=== PATIENT | male | born 1955 | race Asian ===

== ENCOUNTER 2017-08-04 09:50 | Inpatient (IN) | payer OTHER ==
[~2017-08-04] VITALS: Ht 167.6 cm; Wt 63.7 kg
[2017-08-04 10:00] VITALS: BP 156/90; PULSE 75; RESP 16
[2017-08-04] MEDS ORDERED: ASPI-664 PO (10:14)
[2017-08-04] MEDS ORDERED: METF500T4 PO (10:15)
[2017-08-04] MEDS ORDERED: LISI20TA11 PO (10:15)
[2017-08-04 10:27] VITALS: Ht 167.6 cm; Wt 63.7 kg
[2017-08-04] MEDS ORDERED: GLUCAGON 1 MG INJ IM PRN (11:00)
[2017-08-04] MEDS ORDERED: GLUCOSE GEL 15 GRAM TUBE BUCCAL PRN (11:00)
[2017-08-04] MEDS ORDERED: DEXTROSE 50% 50 ML SYRINGE IV PRN ×2 (11:00)
[2017-08-04] MEDS ORDERED: GLUCOSE GEL 15 GRAM TUBE PO PRN ×2 (11:00)
[2017-08-04] MEDS ORDERED: LIDOCAINE 1% (MPF) 5 ML VIAL SC ONE (11:00)
[2017-08-04] MEDS ORDERED: ONDANSETRON 4 MG INJ IV PRN (11:30)
[2017-08-04] MEDS ORDERED: NACL 0.9% 3 ML SYG IV SCH (11:30)
[2017-08-04] MEDS ORDERED: LISINOPRIL 20 MG TAB PO SCH (11:30)
[2017-08-04] MEDS: INSULIN ASPART [NOVOLOG] 3 ML PEN SC SCH ×3 (11:40→20:30)
[2017-08-04 12:51] LABS: BASOPHIL # 0.1 10^3/ul (0.0-0.1); BASOPHILS % 0.8 % (0.0-2.0); EOSINOPHILS # 0.3 10^3/ul (0.0-0.5); EOSINOPHILS % 3.6 % (0.0-7.0); LYMPHOCYTES # 1.6 10^3/ul (0.8-2.9); LYMPHOCYTES % 19.9 % (15.0-51.0); MEAN CORPUSCULAR HEMOGLOBIN 28.7 pg (29.0-33.0); MEAN CORPUSCULAR HGB CONC 33.3 g/dl (32.0-37.0); MEAN CORPUSCULAR VOLUME 86.1 fl (82.0-101.0); MEAN PLATELET VOLUME 9.7 fl (7.4-10.4); MONOCYTE # 0.5 10^3/ul (0.3-0.9); MONOCYTES % 6.3 % (0.0-11.0); NEUTROPHILS % 68.8 % (39.0-77.0); PLATELET COUNT 302 10^3/UL (140-415); RED BLOOD COUNT 4.53 10^6/ul (4.70-6.10); RED CELL DISTRIBUTION WIDTH 11.9 % (11.5-14.5); WHITE BLOOD COUNT 7.8 10^3/ul (4.8-10.8)
--- NOTE | 2017-08-04 13:00 | HP ---
Date/Time of Note Date/Time of Note DATE: 08/04/17 TIME: 12:59 Assessment/Plan VTE Prophylaxis VTE Prophylaxis Intervention: ambulation, SCD's Assessment/Plan Chief Complaint/Hosp Course 1. Newly diagnosed undifferentiated pleomorphic sarcoma. To be started on Adriamycin/ Ifosfamide/ Mesna. PICC line will be inserted for initiation of chemotherapy. Chemotherapy to be managed by oncology. 2. Type 2 diabetes mellitus. The patient will be continued on metformin. Hemoglobin A1c will be obtained to evaluate the blood glucose control over the past few weeks. 3. Essential hypertension. The patient will be resumed on his home antihypertensives. Plan: The patient will be admitted to inpatient medical surgical floor. The patient will be started on a carbohydrate controlled diet. The patient will be started on DVT prophylaxis and gastrointestinal prophylaxis. The patient will remain a full code. Activities will be as tolerated. The rest of the patient's management will be based on the clinical course, inputs from consultants, and the results of diagnostic studies. Based on the patient's clinical presentation, he most probably requires at least 2 midnights' stay for further management and evaluation of his clinical presentation. The case and management of this patient was fully discussed with Dr. Vang Problems: HPI/ROS Admit Date/Time Admit Date/Time Aug 04, 2017 at 09:50 Hx of Present Illness Reason for admission: For chemotherapy. Consultants 1. Mara Joe MD, Oncology. This is a 62-year-old [place] male with past medical history of essential hypertension, diabetes mellitus, and recently diagnosed undifferentiated pleomorphic sarcoma who is being admitted here for initiation of chemotherapy as per the oncologist. The patient verbalized that he noticed right lower abdominal swelling since the November 2016. He underwent imaging studies followed by biopsy that confirmed the diagnosis of undifferentiated pleomorphic sarcoma. The patient follows up with Dr. Joe as outpatient. The patient is being admitted here for initiation of chemotherapy. 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 Alcohol Use: none Smoking Status: Former smoker Drug Use: none Exam/Review of Systems Vital Signs Vitals Vital Signs Date Time Temp Pulse Resp B/P Pulse Ox O2 Delivery O2 Flow Rate FiO2 08/04/17 10:00 97.5 75 16 156/90 98 Room Air Exam Exam General: Adequately build 62 year-old male lying in bed in no apparent distress. HEENT: Normocephalic, atraumatic. Eyes: Anicteric sclerae, conjunctivae clear. ENT: Nasal septum midline, oral mucosa moist. Neck supple, no JVD noticed. Respiratory: Bilaterally clear breath sounds. No use of accessory muscles of respiration. No adventitious breath sounds. Cardiovascular: S1, S2 heard. No murmurs or gallops. Abdomen: Nontender, and nondistended. Bowel sounds positive in all 4 quadrants. Right sided solid mass with no tenderness upon palpation. Genitourinary: Deferred. Extremities: No cyanosis, no clubbing, no edema. Peripheral pulses palpable. Neurologic: Cranial nerves II through XII grossly intact. The patient is awake, alert, and oriented. Skin: Normal skin turgor. No skin rashes. Labs Result Diagram: 08/04/17 1232 Medications Medications Current Medications Aspirin (Halfprin) 81 mg DAILY PO ; Start 08/05/17 at 09:00 Lisinopril (Zestril) 20 mg DAILY PO ; Start 08/05/17 at 09:00 Miscellaneous Information 1 ea NOTE XX ; Start 08/04/17 at 11:00 Glucose (Glutose) 15 gm Q15M PRN PO DECREASED GLUCOSE; Start 08/04/17 at 11:00 Glucose (Glutose) 22.5 gm Q15M PRN PO DECREASED GLUCOSE; Start 08/04/17 at 11:00 Dextrose (D50w Syringe) 25 ml Q15M PRN IV DECREASED GLUCOSE; Start 08/04/17 at 11:00 Dextrose (D50w Syringe) 50 ml Q15M PRN IV DECREASED GLUCOSE; Start 08/04/17 at 11:00 Glucagon (Glucagen) 1 mg Q15M PRN IM DECREASED GLUCOSE; Start 08/04/17 at 11:00 Glucose (Glutose) 15 gm Q15M PRN BUCCAL DECREASED GLUCOSE; Start 08/04/17 at 11: 00 Ondansetron HCl (Zofran Inj) 4 mg Q6H PRN IV NAUSEA AND/OR VOMITING; Start 08/04 at 11:30 Acetaminophen (Tylenol Tab) 650 mg Q6H PRN PO PAIN LEVEL 1-3 OR FEVER; Start at 11:30 Famotidine (Pepcid) 20 mg Q12 PO ; Start 08/04/17 at 21:00 Diagnostic Test (Pha) (Accu-Chek) 1 ea 02 XX ; Start 08/05/17 at 02:00 Diagnostic Test (Pha) (Accu-Chek) 1 ea 02 XX ; Start 08/05/17 at 02:00 EMA WHALEY NP Aug 04, 2017 13:00
[2017-08-04 13:02] LABS: INR 0.87; PROTIME 11.8 Sec (12.2-14.2); PT RATIO 0.9
[2017-08-04 13:03] LABS: PARTIAL THROMBOPLASTIN TIME 32.5 Sec (25.0-35.0)
[2017-08-04 13:11] LABS: ALBUMIN 4.2 g/dl (3.3-4.9); ALBUMIN/GLOBULIN RATIO 1.31; BILIRUBIN,INDIRECT 0.3 mg/dl (0-1.1); BILIRUBIN,TOTAL 0.3 mg/dl (0.2-1.3); CALCIUM 9.6 mg/dl (8.4-10.2); CREATININE 0.68 mg/dl (0.61-1.24); MAGNESIUM 2.1 mg/dl (1.7-2.5); PHOSPHORUS 3.7 mg/dl (2.5-4.9); POTASSIUM 4.4 mmol/L (3.5-5.1); TOTAL PROTEIN 7.4 g/dl (6.1-8.1)
[2017-08-04 14:46] VITALS: BP 154/78; RESP 20
--- NOTE | 2017-08-04 17:17 | RADRPT ---
PROCEDURE: XR Chest. CLINICAL INDICATION: Check Line Placement TECHNIQUE: Single frontal view of the chest was obtained. COMPARISON: None. FINDINGS: There is a left-sided PICC line with its tip in the distal SVC. There is mild to moderate cardiomegaly and mild pulmonary vascular congestion. No definite focal infiltrates are identified. There is no significant pleural effusion or pneumothorax. IMPRESSION: Left-sided PICC line. Mild to moderate cardiomegaly with mild pulmonary vascular congestion. No definite focal infiltrates or effusions. RPTAT: EE Physician César Date Time Electronically viewed and signed by Physician César on 08/04/2017 17:17 /
--- NOTE | 2017-08-04 17:17 | RADRPT ---
PROCEDURE: US guidance for PICC line CLINICAL INDICATION: PICC line placement TECHNIQUE: Multiple real-time images were acquired of the patient's arm utilizing a high resolutio n transducer. This was performed by the PICC line nurse for venous access. COMPARISON: None FINDINGS: See impression. IMPRESSION: Ultrasound guidance for PICC line placement. There is a patent and compressible left upper extremity vein. RPTAT: AA Physician César Date Time Electronically viewed and signed by Kody Starr Physician on 08/04/2017 17:16 /
[2017-08-04] MEDS: metFORMIN 500 MG TAB PO SCH (17:52)
[2017-08-04 19:10] VITALS: BP 146/96; RESP 18
[2017-08-04] MEDS: FAMOTIDINE 20 MG TAB PO SCH (20:28)
--- NOTE | 2017-08-04 23:02 | CONS ---
Date/Time of Note Date/Time of Note DATE: 08/04/17 TIME: 22:54 Assessment/Plan Assessment/Plan Chief Complaint/Hosp Course #poorly differentiated sarcoma -pt to start neoadjuvant chemotherapy with Adriamycin/ Ifosfamide/ Mesna -day 1 of 3 to start tomorrow -will need to check daily UA to evaluate for hemorrhagic cystitis -pt will need a total of 3 cycles 3 weeks apart -PICC line has been inserted -will need ECHO prior to starting adriamycin #Diabetes -continue DM management per primary team #HTN -BP currently under good control -continue current BP meds per primary Problems: (1) Pleomorphic cell sarcoma Status: Acute (2) Diabetes Status: Chronic Qualifiers: (3) Hypertension Status: Chronic Consultation Date/Type/Reason Admit Date/Time Aug 04, 2017 at 09:50 Date of Consultation: Aug 04, 2017 Type of Consultation: Oncology Reason for Consultation poorly differentiated sarcoma Referring Provider: EMA WHALEY NP Hx of Present Illness 62-year-old male who states that he noticed a right lower abdominal mass starting in November 2016. He denies any pain and states that it has not been growing since that time or changing. Patient had an ultrasound performed 2016, which stated that there was a mass corresponding to the area palpable of concern measuring greater than 6 cm.. He underwent a CT abdomen and pelvis with and without contrast on 12/23/2016, which demonstrated a large heterogeneously enhancing soft tissue mass in the right lower quadrant extending towards the right inguinal canal measuring up to 6.9 x 6.3 x 5.9 cm and had a suspicion for malignancy, suggest further evaluation with tissue sampling. Patient underwent a biopsy which revealed an "undifferentiated pleomorphic sarcoma". Pt was evaluated by a sarcoma surgeon at [facility] who stated he could resect the tumor if we were able to decrease the tumor size with neoadjuvant chemotherapy. He is now being admitted for Adriamycin/ Ifosfamide/Mesna. Pt is ready to start chemotherapy. States his abdominal pain is controlled. Eyes: no complaints ENT: no complaints Respiratory: no complaints Cardiovascular: no complaints Gastrointestinal: no complaints Genitourinary: no complaints Musculoskeletal: no complaints Skin: no complaints Neurologic: no complaints Lymphatic: no complaints Psychological: no complaints Immunologic: no complaints Past Medical History Medical History: diabetes, hypertension Past Surgical History Past Surgical Hx: no surgical history Social History Alcohol Use: none Smoking Status: Former smoker Drug Use: none Exam/Review of Systems Vital Signs Vitals Vital Signs Date Time Temp Pulse Resp B/P Pulse Ox O2 Delivery O2 Flow Rate FiO2 08/04/17 19:10 98.7 72 18 146/96 97 08/04/17 10:00 Room Air Exam Constitutional: alert, oriented Psych: no complaints Head: normocephalic Eyes: nl conjunctiva ENMT: nl external ears & nose Neck: non-tender, supple Respiratory: clear to auscultation Cardiovascular: regular rate and rhythm Gastrointestinal: other (palpable mass in RLQ) Musculoskeletal: nl extremities to inspection Results Result Diagram: 08/04/17 1232 08/04/17 1232 Results 24 hrs Laboratory Tests Test 08/04/17 12:32 08/04/17 13:05 08/04/17 17:51 08/04/17 20:30 White Blood Count 7.8 Red Blood Count 4.53 L Hemoglobin 13.0 L Hematocrit 39.0 L Mean Corpuscular Volume 86.1 Mean Corpuscular Hemoglobin 28.7 L Mean Corpuscular Hemoglobin Concent 33.3 Red Cell Distribution Width 11.9 Platelet Count 302 Mean Platelet Volume 9.7 Neutrophils % 68.8 Lymphocytes % 19.9 Monocytes % 6.3 Eosinophils % 3.6 Basophils % 0.8 Nucleated Red Blood Cells % 0.0 Neutrophils # (Manual) 5.4 Lymphocytes # 1.6 Monocytes # 0.5 Eosinophils # 0.3 Basophils # 0.1 Nucleated Red Blood Cells # 0.0 Prothrombin Time 11.8 L Prothrombin Time Ratio 0.9 INR International Normalized Ratio 0.87 Activated Partial Thromboplast Time 32.5 Sodium Level 140 Potassium Level 4.4 Chloride Level 104 Carbon Dioxide Level 24 Anion Gap 16 Blood Urea Nitrogen 10 Creatinine 0.68 Glucose Level 88 Hemoglobin A1c 6.0 H Calcium Level 9.6 Phosphorus Level 3.7 Magnesium Level 2.1 Total Bilirubin 0.3 Direct Bilirubin 0.00 Indirect Bilirubin 0.3 Aspartate Amino Transf (AST/SGOT) 21 Alanine Aminotransferase (ALT/SGPT) 32 Alkaline Phosphatase 69 Total Protein 7.4 Albumin 4.2 Globulin 3.20 Albumin/Globulin Ratio 1.31 Thyroid Stimulating Hormone (TSH) 0.810 Free Thyroxine 0.63 L Bedside Glucose 89 84 88 Medications Medications Current Medications Aspirin (Halfprin) 81 mg DAILY PO ; Start 08/05/17 at 09:00 Lisinopril (Zestril) 20 mg DAILY PO ; Start 08/05/17 at 09:00 Miscellaneous Information 1 ea NOTE XX ; Start 08/04/17 at 11:00 Glucose (Glutose) 15 gm Q15M PRN PO DECREASED GLUCOSE; Start 08/04/17 at 11:00 Glucose (Glutose) 22.5 gm Q15M PRN PO DECREASED GLUCOSE; Start 08/04/17 at 11:00 Dextrose (D50w Syringe) 25 ml Q15M PRN IV DECREASED GLUCOSE; Start 08/04/17 at 11:00 Dextrose (D50w Syringe) 50 ml Q15M PRN IV DECREASED GLUCOSE; Start 08/04/17 at 11:00 Glucagon (Glucagen) 1 mg Q15M PRN IM DECREASED GLUCOSE; Start 08/04/17 at 11:00 Glucose (Glutose) 15 gm Q15M PRN BUCCAL DECREASED GLUCOSE; Start 08/04/17 at 11: 00 Ondansetron HCl (Zofran Inj) 4 mg Q6H PRN IV NAUSEA AND/OR VOMITING; Start 08/04 at 11:30 Acetaminophen (Tylenol Tab) 650 mg Q6H PRN PO PAIN LEVEL 1-3 OR FEVER; Start at 11:30 Famotidine (Pepcid) 20 mg Q12 PO Last administered on 08/04/17t 20:28; Admin Dose 20 MG; Start 08/04/17 at 21:00 Diagnostic Test (Pha) (Accu-Chek) 1 ea 02 XX ; Start 08/05/17 at 02:00 Diagnostic Test (Pha) (Accu-Chek) 1 ea 02 XX ; Start 08/05/17 at 02:00 IV Flush (NS 10 ml) 10 ml PRN PRN IV IV PROTOCOL; Start 08/04/17 at 17:30 DOMINIQUE LAMBERT M.D. Aug 04, 2017 23:02
[2017-08-05] MEDS: ACCU-CHEK XX SCH ×2 (02:00)
[2017-08-05 02:10] VITALS: BP 124/82; RESP 18
[2017-08-05 05:08] LABS: BASOPHIL # 0.1 10^3/ul (0.0-0.1); BASOPHILS % 0.5 % (0.0-2.0); EOSINOPHILS # 0.3 10^3/ul (0.0-0.5); EOSINOPHILS % 2.9 % (0.0-7.0); HEMATOCRIT 38.2 % (42.0-52.0); HEMOGLOBIN 12.5 g/dl (14.0-18.0); LYMPHOCYTES # 1.3 10^3/ul (0.8-2.9); LYMPHOCYTES % 13.1 % (15.0-51.0); MEAN CORPUSCULAR HEMOGLOBIN 28.3 pg (29.0-33.0); MEAN CORPUSCULAR HGB CONC 32.7 g/dl (32.0-37.0); MEAN CORPUSCULAR VOLUME 86.4 fl (82.0-101.0); MEAN PLATELET VOLUME 9.5 fl (7.4-10.4); MONOCYTE # 0.7 10^3/ul (0.3-0.9); MONOCYTES % 6.8 % (0.0-11.0); NEUTROPHILS % 76.3 % (39.0-77.0); PLATELET COUNT 302 10^3/UL (140-415); RED BLOOD COUNT 4.42 10^6/ul (4.70-6.10); RED CELL DISTRIBUTION WIDTH 11.9 % (11.5-14.5); WHITE BLOOD COUNT 9.7 10^3/ul (4.8-10.8)
[2017-08-05 05:30] LABS: ALBUMIN 3.7 g/dl (3.3-4.9); ALBUMIN/GLOBULIN RATIO 1.19; BILIRUBIN,INDIRECT 0.8 mg/dl (0-1.1); BILIRUBIN,TOTAL 0.8 mg/dl (0.2-1.3); CALCIUM 9.2 mg/dl (8.4-10.2); CREATININE 0.79 mg/dl (0.61-1.24); POTASSIUM 4.2 mmol/L (3.5-5.1); TOTAL PROTEIN 6.8 g/dl (6.1-8.1)
[2017-08-05 06:02] LABS: CHOL/HDL RATIO 5.2 RATIO; MAGNESIUM 2.2 mg/dl (1.7-2.5)
[2017-08-05] MEDS: metFORMIN 500 MG TAB PO SCH ×2 (07:50→18:06)
[2017-08-05 07:52] LABS: ADD UMIC NO; UR ASCORBIC ACID NEGATIVE (NEGATIVE); UR BILIRUBIN (Dip) NEGATIVE (NEGATIVE); UR BLOOD (Dip) NEGATIVE (NEGATIVE); UR CLARITY CLEAR (CLEAR); UR COLOR YELLOW (YELLOW); UR GLUCOSE (Dip) NEGATIVE (NEGATIVE); UR KETONES (Dip) NEGATIVE (NEGATIVE); UR LEUKOCYTE ESTERASE (Dip) NEGATIVE Leu/ul (NEGATIVE); UR NITRITE (Dip) NEGATIVE (NEGATIVE); UR SPECIFIC GRAVITY (Dip) 1.014 (1.003-1.030); UR TOTAL PROTEIN (Dip) NEGATIVE (NEGATIVE); UR UROBILINOGEN (Dip) NEGATIVE (NEGATIVE)
[2017-08-05 08:09] VITALS: BP 132/71; RESP 18
[2017-08-05] MEDS: FAMOTIDINE 20 MG TAB PO SCH ×2 (08:40→20:55)
[2017-08-05] MEDS: LISINOPRIL 20 MG TAB PO SCH (08:50)
[2017-08-05] MEDS: ASPIRIN (EC) 81 MG TAB PO SCH (08:50)
[2017-08-05] MEDS: INSULIN ASPART [NOVOLOG] 3 ML PEN SC SCH ×4 (08:50→20:58)
--- NOTE | 2017-08-05 10:05 | PN ---
Date/Time of Note Date/Time of Note DATE: 08/05/17 TIME: 09:59 Assessment/Plan VTE Prophylaxis VTE Prophylaxis Intervention: ambulation, SCD's Lines/Catheters IV Catheter Type (from Nrs): PICC Line Central line still needed: Yes Urinary Cath still in place: No Assessment/Plan Chief Complaint/Hosp Course 1. Newly diagnosed undifferentiated pleomorphic sarcoma. To be started on Adriamycin/ Ifosfamide/ Mesna. S/P PICC line insertion. 2. Type 2 diabetes mellitus. The patient will be continued on metformin. Hemoglobin A1c 6.0. 3. Essential hypertension. The patient will be continued on his home antihypertensives. 4. Fluids, electrolytes, and nutrition. Carbohydrate controlled diet. 5. DVT prophylaxis. Ambulation. 6. Plan. Continue current management. Chemotherapy as per oncology. Case discussed with Dr. Vang. Problems: Subjective 24 Hr Interval Summary Free Text/Dictation Denies any complaints. Exam/Review of Systems Vital Signs Vitals Vital Signs Date Time Temp Pulse Resp B/P Pulse Ox O2 Delivery O2 Flow Rate FiO2 08/05/17 08:09 97.6 72 18 132/71 99 08/04/17 10:00 Room Air Intake and Output 08/04/17 08/04/17 08/05/17 14:59 22:59 06:59 Intake Total 520 ml 720 ml Balance 520 ml 720 ml Exam General: Adequately build 62 year-old male lying in bed in no apparent distress. HEENT: Normocephalic, atraumatic. Eyes: Anicteric sclerae, conjunctivae clear. ENT: Nasal septum midline, oral mucosa moist. Neck supple, no JVD noticed. Respiratory: Bilaterally clear breath sounds. No use of accessory muscles of respiration. No adventitious breath sounds. Cardiovascular: S1, S2 heard. No murmurs or gallops. Abdomen: Nontender, and nondistended. Bowel sounds positive in all 4 quadrants. Right sided solid mass with no tenderness upon palpation. Genitourinary: Deferred. Extremities: No cyanosis, no clubbing, no edema. Peripheral pulses palpable. Neurologic: Cranial nerves II through XII grossly intact. The patient is awake, alert, and oriented. Skin: Normal skin turgor. No skin rashes. Results Result Diagram: 08/05/17 0451 08/05/17 0451 Results 24 hrs Laboratory Tests Test 08/04/17 12:32 08/04/17 13:05 08/04/17 17:51 08/04/17 20:30 White Blood Count 7.8 Red Blood Count 4.53 L Hemoglobin 13.0 L Hematocrit 39.0 L Mean Corpuscular Volume 86.1 Mean Corpuscular Hemoglobin 28.7 L Mean Corpuscular Hemoglobin Concent 33.3 Red Cell Distribution Width 11.9 Platelet Count 302 Mean Platelet Volume 9.7 Neutrophils % 68.8 Lymphocytes % 19.9 Monocytes % 6.3 Eosinophils % 3.6 Basophils % 0.8 Nucleated Red Blood Cells % 0.0 Neutrophils # (Manual) 5.4 Lymphocytes # 1.6 Monocytes # 0.5 Eosinophils # 0.3 Basophils # 0.1 Nucleated Red Blood Cells # 0.0 Prothrombin Time 11.8 L Prothrombin Time Ratio 0.9 INR International Normalized Ratio 0.87 Activated Partial Thromboplast Time 32.5 Sodium Level 140 Potassium Level 4.4 Chloride Level 104 Carbon Dioxide Level 24 Anion Gap 16 Blood Urea Nitrogen 10 Creatinine 0.68 Glucose Level 88 Hemoglobin A1c 6.0 H Calcium Level 9.6 Phosphorus Level 3.7 Magnesium Level 2.1 Total Bilirubin 0.3 Direct Bilirubin 0.00 Indirect Bilirubin 0.3 Aspartate Amino Transf (AST/SGOT) 21 Alanine Aminotransferase (ALT/SGPT) 32 Alkaline Phosphatase 69 Total Protein 7.4 Albumin 4.2 Globulin 3.20 Albumin/Globulin Ratio 1.31 Thyroid Stimulating Hormone (TSH) 0.810 Free Thyroxine 0.63 L Bedside Glucose 89 84 88 Test 08/05/17 04:51 08/05/17 06:00 08/05/17 08:36 White Blood Count 9.7 # Red Blood Count 4.42 L Hemoglobin 12.5 L Hematocrit 38.2 L Mean Corpuscular Volume 86.4 Mean Corpuscular Hemoglobin 28.3 L Mean Corpuscular Hemoglobin Concent 32.7 Red Cell Distribution Width 11.9 Platelet Count 302 Mean Platelet Volume 9.5 Neutrophils % 76.3 Lymphocytes % 13.1 L Monocytes % 6.8 Eosinophils % 2.9 Basophils % 0.5 Nucleated Red Blood Cells % 0.0 Neutrophils # (Manual) 7.4 Lymphocytes # 1.3 Monocytes # 0.7 Eosinophils # 0.3 Basophils # 0.1 Nucleated Red Blood Cells # 0.0 Sodium Level 139 Potassium Level 4.2 Chloride Level 103 Carbon Dioxide Level 30 Anion Gap 10 # Blood Urea Nitrogen 16 Creatinine 0.79 Glucose Level 92 Calcium Level 9.2 Phosphorus Level 4.0 Magnesium Level 2.2 Total Bilirubin 0.8 Direct Bilirubin 0.00 Indirect Bilirubin 0.8 Aspartate Amino Transf (AST/SGOT) 20 Alanine Aminotransferase (ALT/SGPT) 28 Alkaline Phosphatase 58 Total Protein 6.8 Albumin 3.7 Globulin 3.10 Albumin/Globulin Ratio 1.19 Triglycerides Level 184 H Cholesterol Level 143 LDL Cholesterol, Calculated 79 HDL Cholesterol 27 L Cholesterol/HDL Ratio 5.2 Urine Color YELLOW Urine Clarity CLEAR Urine pH 6.0 Urine Specific [place] 1.014 Urine Ketones NEGATIVE Urine Nitrite NEGATIVE Urine Bilirubin NEGATIVE Urine Urobilinogen NEGATIVE Urine Leukocyte Esterase NEGATIVE Urine Hemoglobin NEGATIVE Urine Glucose NEGATIVE Urine Total Protein NEGATIVE Bedside Glucose 153 Medications Medications Current Medications Aspirin (Halfprin) 81 mg DAILY PO ; Start 08/05/17 at 09:00 Lisinopril (Zestril) 20 mg DAILY PO ; Start 08/05/17 at 09:00 Miscellaneous Information 1 ea NOTE XX ; Start 08/04/17 at 11:00 Glucose (Glutose) 15 gm Q15M PRN PO DECREASED GLUCOSE; Start 08/04/17 at 11:00 Glucose (Glutose) 22.5 gm Q15M PRN PO DECREASED GLUCOSE; Start 08/04/17 at 11:00 Dextrose (D50w Syringe) 25 ml Q15M PRN IV DECREASED GLUCOSE; Start 08/04/17 at 11:00 Dextrose (D50w Syringe) 50 ml Q15M PRN IV DECREASED GLUCOSE; Start 08/04/17 at 11:00 Glucagon (Glucagen) 1 mg Q15M PRN IM DECREASED GLUCOSE; Start 08/04/17 at 11:00 Glucose (Glutose) 15 gm Q15M PRN BUCCAL DECREASED GLUCOSE; Start 08/04/17 at 11: 00 Ondansetron HCl (Zofran Inj) 4 mg Q6H PRN IV NAUSEA AND/OR VOMITING; Start 08/04 at 11:30 Acetaminophen (Tylenol Tab) 650 mg Q6H PRN PO PAIN LEVEL 1-3 OR FEVER; Start at 11:30 Famotidine (Pepcid) 20 mg Q12 PO Last administered on 08/05/17t 08:40; Admin Dose 20 MG; Start 08/04/17 at 21:00 Diagnostic Test (Pha) (Accu-Chek) 1 ea 02 XX ; Start 08/05/17 at 02:00 Diagnostic Test (Pha) (Accu-Chek) 1 ea 02 XX ; Start 08/05/17 at 02:00 IV Flush (NS 10 ml) 10 ml PRN PRN IV IV PROTOCOL; Start 08/04/17 at 17:30 EMA WHALEY NP Aug 05, 2017 10:05
[2017-08-05 10:37] LABS: IRON 70 ug/dl (35-150)
[2017-08-05 10:46] LABS: TOTAL IRON BINDING CAPACITY 273 ug/dl (241-421)
[2017-08-05] MEDS: SOD CHLORIDE 0.9% 1,000 ML IV SCH (12:38)
[2017-08-05] MEDS: ACETAMINOPHEN 325 MG TAB PO PRN (12:43)
[2017-08-05 15:16] VITALS: BP 114/73; RESP 18
--- NOTE | 2017-08-05 15:27 | RADRPT ---
Echocardiogram Report Patient Name: MAYRA ESTRADA Gender: Male Date: 1955 Study Date: 05-Aug-2017 Maintenance Team Leader: Jose Gomes. [facility] Location: [facility] Ref. Physician: DOMINIQUE LAMBERT Quality: Good Procedures: Transthoracic echocardiogram with complete 2D, M-Mode, and doppler examination. Indications: will have chemo. 2D/M Mode Doppler Measurement Value Normal Ranges Measurement Value Normal Ranges LVIDd 2D 4.9 3.5 - 5.6 cm DEVAN Vmax 2.5 cm2 LVIDs 2D 1.9 2.1 - 4.1 cm DEVAN VTI 2.5 cm2 LVPWd 2D 1.2 0.6 - 1.1 cm AV Peak Danilo 1.3 m/sec IVSd 2D 1.1 0.6 - 1.1 cm AV Peak PG 6.8 mmHg AoR Diam 2D 2.8 2.0 - 3.7 cm LVOT Peak Danilo 0.9 m/sec EDV 2D 114.4 cm3 LVOT Peak PG 3.5 mmHg ESV 2D 7.0 cm3 MV E Peak Danilo 0.6 m/sec LA Dimen 2D 2.8 2.3 - 4.0 cm MV A Peak Danilo 0.6 m/sec LVOT Diam 2.1 cm MV E/A 1.0 MV Decel Time 239 msec MV Decel [place] 3 MV E/A 1.0 TR Peak Danilo 1.9 m/sec TR Peak PG 14.0 mmHg RVSP 17.0 mmHg Findings Left Ventricle: Normal left ventricular systolic function. Normal left ventricular cavity size. Mild concentric left ventricular hypertrophy. Ejection fraction is visually estimated at 6065 %. Tissue Doppler/Mitral Doppler indices are consistent with impaired relaxation (Stage I diastolic dysfunction). Right Ventricle: Normal right ventricular size. Normal right ventricular systolic function. Left Atrium: The left atrium is normal in size. Right Atrium: The right atrium is normal in size. Mitral Valve: Normal appearance and function of the mitral valve with trace physiologic regurgitation. Aortic Valve: Normal appearance of the aortic valve. No significant aortic stenosis or insufficiency. Tricuspid Valve: Normal appearance of the tricuspid valve. Estimated peak PA systolic pressure 17 mmHg. There is trace tricuspid regurgitation. Pulmonic Valve: Normal pulmonic valve appearance. Pericardium: Normal pericardium with no significant pericardial effusion. Aorta: Normal aortic root. IVC: Normal size and normal respiratory collapse consistent with normal right atrial pressure. Conclusions 1.Normal left ventricular systolic function. Normal left ventricular cavity size. Mild concentric left ventricular hypertrophy. Ejection fraction is visually estimated at 60-65 %. Tissue Doppler/Mitral Doppler indices are consistent with impaired relaxation (Stage I diastolic dysfunction). 2.Normal appearance and function of the mitral valve with trace physiologic regurgitation. 3.Normal appearance of the tricuspid valve. Estimated peak PA systolic pressure 17 mmHg. There is trace tricuspid regurgitation. Electronically Signed By: Kwasi Cotto 05-Aug-2017 15:27:00 -0700 Patient Name: MAYRA ESTRADA Study Date: 05-Aug-2017 [id number]
[2017-08-05 19:25] VITALS: BP 118/73; RESP 18
[2017-08-05] MEDS ORDERED: METHYLPREDNISOLONE 125 MG INJ IV PRN (20:00)
[2017-08-05] MEDS ORDERED: DIPHENHYDRAMINE 50 MG INJ IV PRN (20:00)
--- NOTE | 2017-08-05 21:30 | CONS ---
Date/Time of Note Date/Time of Note DATE: 08/05/17 TIME: 21:26 Assessment/Plan Assessment/Plan Chief Complaint/Hosp Course #poorly differentiated sarcoma -pt to start neoadjuvant chemotherapy with Adriamycin/ Ifosfamide/ Mesna. plan for 3 cycles total then evaluate for surgical resection -day 1 of 3 to start today -will need to check daily UA to evaluate for hemorrhagic cystitis. baseline UA done -pt will need a total of 3 cycles 3 weeks apart -PICC line has been inserted -ECHO has normal EF #Diabetes -continue DM management per primary team -pt on metformin #HTN -BP currently under good control -continue current BP meds per primary Problems: Consultation Date/Type/Reason Admit Date/Time Aug 04, 2017 at 09:50 Initial Consult Date 08/04/17 Type of Consultation: Oncology Reason for Consultation sarcoma, admit for chemotherapy Referring Provider: EMA WHALEY NP 24 HR Interval Summary Free Text/Dictation pt to start chemotherapy today. echocardiogram done Exam/Review of Systems Vital Signs Vitals Vital Signs Date Time Temp Pulse Resp B/P Pulse Ox O2 Delivery O2 Flow Rate FiO2 08/05/17 19:25 98.6 89 18 118/73 97 08/04/17 10:00 Room Air Intake and Output 08/04/17 08/04/17 08/05/17 14:59 22:59 06:59 Intake Total 520 ml 720 ml Balance 520 ml 720 ml Exam Constitutional: alert, oriented Psych: no complaints Head: normocephalic Eyes: nl conjunctiva ENMT: nl external ears & nose Neck: non-tender, supple Respiratory: clear to auscultation, normal air movement Cardiovascular: nl pulses, regular rate and rhythm Gastrointestinal: soft Musculoskeletal: nl extremities to inspection Lymph: nl lymph nodes Results Result Diagram: 08/05/17 0451 08/05/17 0451 Results 24 hrs Laboratory Tests Test 08/05/17 04:51 08/05/17 06:00 08/05/17 08:36 08/05/17 12:39 White Blood Count 9.7 # Red Blood Count 4.42 L Hemoglobin 12.5 L Hematocrit 38.2 L Mean Corpuscular Volume 86.4 Mean Corpuscular Hemoglobin 28.3 L Mean Corpuscular Hemoglobin Concent 32.7 Red Cell Distribution Width 11.9 Platelet Count 302 Mean Platelet Volume 9.5 Neutrophils % 76.3 Lymphocytes % 13.1 L Monocytes % 6.8 Eosinophils % 2.9 Basophils % 0.5 Nucleated Red Blood Cells % 0.0 Neutrophils # (Manual) 7.4 Lymphocytes # 1.3 Monocytes # 0.7 Eosinophils # 0.3 Basophils # 0.1 Nucleated Red Blood Cells # 0.0 Sodium Level 139 Potassium Level 4.2 Chloride Level 103 Carbon Dioxide Level 30 Anion Gap 10 # Blood Urea Nitrogen 16 Creatinine 0.79 Glucose Level 92 Calcium Level 9.2 Phosphorus Level 4.0 Magnesium Level 2.2 Total Bilirubin 0.8 Direct Bilirubin 0.00 Indirect Bilirubin 0.8 Aspartate Amino Transf (AST/SGOT) 20 Alanine Aminotransferase (ALT/SGPT) 28 Alkaline Phosphatase 58 Total Protein 6.8 Albumin 3.7 Globulin 3.10 Albumin/Globulin Ratio 1.19 Triglycerides Level 184 H Cholesterol Level 143 LDL Cholesterol, Calculated 79 HDL Cholesterol 27 L Cholesterol/HDL Ratio 5.2 Urine Color YELLOW Urine Clarity CLEAR Urine pH 6.0 Urine Specific [place] 1.014 Urine Ketones NEGATIVE Urine Nitrite NEGATIVE Urine Bilirubin NEGATIVE Urine Urobilinogen NEGATIVE Urine Leukocyte Esterase NEGATIVE Urine Hemoglobin NEGATIVE Urine Glucose NEGATIVE Urine Total Protein NEGATIVE Iron Level 70 Total Iron Binding Capacity 273 Percent Iron Saturation 26 Ferritin 122.0 Bedside Glucose 153 85 Test 08/05/17 17:59 08/05/17 20:57 Bedside Glucose 104 112 Medications Medications Current Medications Aspirin (Halfprin) 81 mg DAILY PO ; Start 08/05/17 at 09:00 Lisinopril (Zestril) 20 mg DAILY PO ; Start 08/05/17 at 09:00 Miscellaneous Information 1 ea NOTE XX ; Start 08/04/17 at 11:00 Glucose (Glutose) 15 gm Q15M PRN PO DECREASED GLUCOSE; Start 08/04/17 at 11:00 Glucose (Glutose) 22.5 gm Q15M PRN PO DECREASED GLUCOSE; Start 08/04/17 at 11:00 Dextrose (D50w Syringe) 25 ml Q15M PRN IV DECREASED GLUCOSE; Start 08/04/17 at 11:00 Dextrose (D50w Syringe) 50 ml Q15M PRN IV DECREASED GLUCOSE; Start 08/04/17 at 11:00 Glucagon (Glucagen) 1 mg Q15M PRN IM DECREASED GLUCOSE; Start 08/04/17 at 11:00 Glucose (Glutose) 15 gm Q15M PRN BUCCAL DECREASED GLUCOSE; Start 08/04/17 at 11: 00 Ondansetron HCl (Zofran Inj) 4 mg Q6H PRN IV NAUSEA AND/OR VOMITING; Start 08/04 at 11:30 Acetaminophen (Tylenol Tab) 650 mg Q6H PRN PO PAIN LEVEL 1-3 OR FEVER Last administered on 08/05/17 12:43; Admin Dose 650 MG; Start 08/04/17 at 11:30 Famotidine (Pepcid) 20 mg Q12 PO Last administered on 08/05/17 20:55; Admin Dose 20 MG; Start 08/04/17 at 21:00 Diagnostic Test (Pha) (Accu-Chek) 1 ea 02 XX ; Start 08/05/17 at 02:00 Diagnostic Test (Pha) (Accu-Chek) 1 ea 02 XX ; Start 08/05/17 at 02:00 IV Flush 10 ml 10 ml PRN PRN IV IV PROTOCOL; Start 08/04/17 at 17:30 Sodium Chloride (NS) 1,000 ml @ 50 mls/hr Q20H IV Last administered on 12:38; Admin Dose 50 MLS/HR; Start 08/05/17 at 11:00 Diphenhydramine HCl (Benadryl) 25 mg Q4H PRN IV ALLERGIC RXN; Start 08/05/17 at 20:00 Methylprednisolone Sodium Succinate (Solu-Medrol) 60 mg Q4H PRN IV ALLERGIC RXN ; Start 08/05/17 at 20:00 Diphenhydramine HCl 25 mg 25 mg Q24H IV ; Start 08/05/17 at 21:00; Stop 08/07/17 at 21:01 Dexamethasone 10 mg/Ondansetron HCl 16 mg/Sodium Chloride 59 ml @ 120 mls/hr Q24H IV ; Start 08/05/17 at 21:00; Stop 08/07/17 at 21:30 Mesna 1260 mg/ Sodium Chloride 112.6 ml @ 113 mls/hr Q24H IV ; Start 08/05/17 at 22:00; Stop 08/07/17 at 23:00 Ifosfamide 3 gm/ Ifosfamide 1.2 gm/ Sodium Chloride 250 ml @ 125 mls/hr Q24H IV ; Start 08/05/17 at 23:00; Stop 08/08/17 at 00:59 Doxorubicin HCl 40 mg/Sodium Chloride 500 ml @ 21 mls/hr Q24H IV ; Start at 02:00; Stop 08/09/17 at 01:49 Mesna 1260 mg/ Sodium Chloride 112.6 ml @ 113 mls/hr Q24H IV ; Start 08/06/17 at 05:00; Stop 08/08/17 at 06:00 Mesna/Sodium Chloride (Mesna/NS) 112.6 ml @ 113 mls/hr Q24H IV ; Start 08/06/17 at 09:00; Stop 08/08/17 at 10:00 DOMINIQUE LAMBERT M.D. Aug 05, 2017 21:30
[2017-08-05] MEDS: DEXAMETHASONE 10 MG/ML 10 MG, ONDANSETRON INJ 16 MG in SOD CHLORIDE 0.9% 50 ML IV SCH (22:55)
[2017-08-05] MEDS: DIPHENHYDRAMINE 50 MG INJ IV SCH (22:57)
[2017-08-05] MEDS: SOD CHLORIDE 0.9% IV SCH (23:15)
[2017-08-05] MEDS: MESNA IV SCH (23:15)
[2017-08-06] VITALS (19 sets, daily range): BP systolic 108–147; BP diastolic 57–86; PULSE 65–89; RESP 16–20
[2017-08-06] MEDS: IFOSFAMIDE IV SCH (00:17)
[2017-08-06] MEDS: SOD CHLORIDE 0.9% IV SCH ×4 (00:17→10:58)
[2017-08-06] MEDS: ACCU-CHEK XX SCH ×2 (02:00)
[2017-08-06] MEDS: DOXORUBICIN IV SCH (03:40)
[2017-08-06 05:24] LABS: BASOPHILS % 0.3 % (0.0-2.0); EOSINOPHILS % 0.1 % (0.0-7.0); HEMATOCRIT 40.3 % (42.0-52.0); HEMOGLOBIN 12.7 g/dl (14.0-18.0); LYMPHOCYTES # 0.8 10^3/ul (0.8-2.9); MEAN CORPUSCULAR HEMOGLOBIN 27.4 pg (29.0-33.0); MEAN CORPUSCULAR HGB CONC 31.5 g/dl (32.0-37.0); MEAN PLATELET VOLUME 9.8 fl (7.4-10.4); MONOCYTE # 0.1 10^3/ul (0.3-0.9); MONOCYTES % 0.8 % (0.0-11.0); NEUTROPHILS % 90.1 % (39.0-77.0); PLATELET COUNT 294 10^3/UL (140-415); RED BLOOD COUNT 4.63 10^6/ul (4.70-6.10); RED CELL DISTRIBUTION WIDTH 12.3 % (11.5-14.5)
[2017-08-06 05:40] LABS: MAGNESIUM 2.3 mg/dl (1.7-2.5); PHOSPHORUS 3.5 mg/dl (2.5-4.9)
[2017-08-06 05:43] LABS: ALBUMIN/GLOBULIN RATIO 1.21; BILIRUBIN,INDIRECT 0.6 mg/dl (0-1.1); BILIRUBIN,TOTAL 0.6 mg/dl (0.2-1.3); CALCIUM 9.3 mg/dl (8.4-10.2); CREATININE 0.92 mg/dl (0.61-1.24); POTASSIUM 4.8 mmol/L (3.5-5.1); TOTAL PROTEIN 7.3 g/dl (6.1-8.1)
[2017-08-06] MEDS: MESNA IV SCH ×2 (06:51→10:58)
[2017-08-06] MEDS: SOD CHLORIDE 0.9% 1,000 ML IV SCH ×2 (07:00→10:19)
--- NOTE | 2017-08-06 08:57 | PN ---
Date/Time of Note Date/Time of Note DATE: 08/06/17 TIME: 08:56 Assessment/Plan VTE Prophylaxis VTE Prophylaxis Intervention: ambulation Lines/Catheters IV [facility] Type [facility]from [facility] PICC Line Central line still needed: Yes Urinary Cath still in place: No Assessment/Plan Chief Complaint/Hosp Course 1. Newly diagnosed undifferentiated pleomorphic sarcoma. The patient on Adriamycin/ Ifosfamide/ Mesna. S/P PICC line insertion. 2D echo showing preserved left ventricular ejection fraction. 2. Type 2 diabetes mellitus. The patient will be continued on metformin. Hemoglobin A1c 6.0. 3. Essential hypertension. The patient will be continued on his home antihypertensives. 4. Fluids, electrolytes, and nutrition. Carbohydrate controlled diet. 5. DVT prophylaxis. Ambulation. 6. Plan. Continue current management. Chemotherapy as per oncology. Case discussed with Dr. Vang. Problems: Subjective 24 Hr Interval Summary Free Text/Dictation Denies any complaints. Getting chemotherapy. Exam/Review of Systems Vital Signs Vitals Vital Signs Date Time Temp Pulse Resp B/P Pulse Ox O2 Delivery O2 Flow Rate FiO2 08/06/17 08:01 97.8 87 18 130/76 97 08/06/17 06:00 Room Air Intake and Output 08/05/17 08/05/17 08/06/17 14:59 22:59 06:59 Intake Total 955 ml 1546.6 ml Balance 955 ml 1546.6 ml Exam General: Adequately build 62 year-old male lying in bed in no apparent distress. HEENT: Normocephalic, atraumatic. Eyes: Anicteric sclerae, conjunctivae clear. ENT: Nasal septum midline, oral mucosa moist. Neck supple, no JVD noticed. Respiratory: Bilaterally clear breath sounds. No use of accessory muscles of respiration. No adventitious breath sounds. Cardiovascular: S1, S2 heard. No murmurs or gallops. Abdomen: Nontender, and nondistended. Bowel sounds positive in all 4 quadrants. Right sided solid mass with no tenderness upon palpation. Genitourinary: Deferred. Extremities: No cyanosis, no clubbing, no edema. Peripheral pulses palpable. Neurologic: Cranial nerves II through XII grossly intact. The patient is awake, alert, and oriented. Skin: Normal skin turgor. No skin rashes. Results Result Diagram: 08/06/17 0425 08/06/17 0425 Results 24 hrs Laboratory Tests Test 08/05/17 12:39 08/05/17 17:59 08/05/17 20:57 08/06/17 04:25 Bedside Glucose 85 104 112 White Blood Count 10.0 Red Blood Count 4.63 L Hemoglobin 12.7 L Hematocrit 40.3 L Mean Corpuscular Volume 87.0 Mean Corpuscular Hemoglobin 27.4 L Mean Corpuscular Hemoglobin Concent 31.5 L Red Cell Distribution Width 12.3 Platelet Count 294 Mean Platelet Volume 9.8 Neutrophils % 90.1 H Lymphocytes % 8.0 L Monocytes % 0.8 Eosinophils % 0.1 Basophils % 0.3 Nucleated Red Blood Cells % 0.0 Neutrophils # (Manual) 9.0 H Lymphocytes # 0.8 Monocytes # 0.1 L Eosinophils # 0.0 Basophils # 0.0 Nucleated Red Blood Cells # 0.0 Sodium Level 143 Potassium Level 4.8 Chloride Level 104 Carbon Dioxide Level 29 Anion Gap 15 Blood Urea Nitrogen 16 Creatinine 0.92 Glucose Level 146 # Calcium Level 9.3 Phosphorus Level 3.5 Magnesium Level 2.3 Total Bilirubin 0.6 Direct Bilirubin 0.00 Indirect Bilirubin 0.6 Aspartate Amino Transf (AST/SGOT) 20 Alanine Aminotransferase (ALT/SGPT) 26 Alkaline Phosphatase 66 Total Protein 7.3 Albumin 4.0 Globulin 3.30 H Albumin/Globulin Ratio 1.21 Test 08/06/17 08:29 Bedside Glucose 157 Medications Medications Current Medications Aspirin (Halfprin) 81 mg DAILY PO ; Start 08/05/17 at 09:00 Lisinopril (Zestril) 20 mg DAILY PO ; Start 08/05/17 at 09:00 Miscellaneous Information 1 ea NOTE XX ; Start 08/04/17 at 11:00 Glucose (Glutose) 15 gm Q15M PRN PO DECREASED GLUCOSE; Start 08/04/17 at 11:00 Glucose (Glutose) 22.5 gm Q15M PRN PO DECREASED GLUCOSE; Start 08/04/17 at 11:00 Dextrose (D50w Syringe) 25 ml Q15M PRN IV DECREASED GLUCOSE; Start 08/04/17 at 11:00 Dextrose (D50w Syringe) 50 ml Q15M PRN IV DECREASED GLUCOSE; Start 08/04/17 at 11:00 Glucagon (Glucagen) 1 mg Q15M PRN IM DECREASED GLUCOSE; Start 08/04/17 at 11:00 Glucose (Glutose) 15 gm Q15M PRN BUCCAL DECREASED GLUCOSE; Start 08/04/17 at 11: 00 Ondansetron HCl (Zofran Inj) 4 mg Q6H PRN IV NAUSEA AND/OR VOMITING; Start 08/04 at 11:30 Acetaminophen (Tylenol Tab) 650 mg Q6H PRN PO PAIN LEVEL 1-3 OR FEVER Last administered on 08/05/17 12:43; Admin Dose 650 MG; Start 08/04/17 at 11:30 Famotidine (Pepcid) 20 mg Q12 PO Last administered on 08/05/17 20:55; Admin Dose 20 MG; Start 08/04/17 at 21:00 Diagnostic Test (Pha) (Accu-Chek) 1 ea 02 XX ; Start 08/05/17 at 02:00 Diagnostic Test (Pha) (Accu-Chek) 1 ea 02 XX ; Start 08/05/17 at 02:00 IV Flush 10 ml 10 ml PRN PRN IV IV PROTOCOL; Start 08/04/17 at 17:30 Sodium Chloride (NS) 1,000 ml @ 50 mls/hr Q20H IV Last administered on 12:38; Admin Dose 50 MLS/HR; Start 08/05/17 at 11:00 Diphenhydramine HCl (Benadryl) 25 mg Q4H PRN IV ALLERGIC RXN; Start 08/05/17 at 20:00 Methylprednisolone Sodium Succinate (Solu-Medrol) 60 mg Q4H PRN IV ALLERGIC RXN ; Start 08/05/17 at 20:00 Diphenhydramine HCl 25 mg 25 mg Q24H IV Last administered on 08/05/17 22:57; Admin Dose 25 MG; Start 08/05/17 at 21:00; Stop 08/07/17 at 21:01 Dexamethasone 10 mg/Ondansetron HCl 16 mg/Sodium Chloride 59 ml @ 120 mls/hr Q24H IV Last administered on 08/05/17 22:55; Admin Dose 120 MLS/HR; Start at 21:00; Stop 08/07/17 at 21:30 Mesna 1260 mg/ Sodium Chloride 112.6 ml @ 113 mls/hr Q24H IV Last administered on 08/05/17 23:15; Admin Dose 113 MLS/HR; Start 08/05/17 at 22:00; Stop 08/07/17 at 23:00 Ifosfamide 3 gm/ Ifosfamide 1.2 gm/ Sodium Chloride 250 ml @ 125 mls/hr Q24H IV Last administered on 08/06/17 00:17; Admin Dose 125 MLS/HR; Start 08/05/17 at 23:00; Stop 08/08/17 at 00:59 Doxorubicin HCl 40 mg/Sodium Chloride 500 ml @ 21 mls/hr Q24H IV Last administered on 08/06/17 03:40; Admin Dose 21 MLS/HR; Start 08/06/17 at 02:00; Stop 08/09/17 at 01:49 Mesna 1260 mg/ Sodium Chloride 112.6 ml @ 113 mls/hr Q24H IV Last administered on 08/06/17 06:51; Admin Dose 113 MLS/HR; Start 08/06/17 at 05:00; Stop 08/08/17 at 06:00 Mesna/Sodium Chloride (Mesna/NS) 112.6 ml @ 113 mls/hr Q24H IV ; Start 08/06/17 at 09:00; Stop 08/08/17 at 10:00 EMA WHALEY NP Aug 06, 2017 08:57
[2017-08-06] MEDS: metFORMIN 500 MG TAB PO SCH ×2 (09:01→17:44)
[2017-08-06] MEDS: ASPIRIN (EC) 81 MG TAB PO SCH (09:01)
[2017-08-06] MEDS: FAMOTIDINE 20 MG TAB PO SCH ×2 (09:01→20:39)
[2017-08-06] MEDS: LISINOPRIL 20 MG TAB PO SCH (09:02)
[2017-08-06] MEDS: INSULIN ASPART [NOVOLOG] 3 ML PEN SC SCH ×4 (09:02→20:42)
[2017-08-06 09:55] LABS: ADD UMIC YES; UR ASCORBIC ACID NEGATIVE (NEGATIVE); UR BILIRUBIN (Dip) NEGATIVE (NEGATIVE); UR BLOOD (Dip) 1+ mg/dL (NEGATIVE); UR CLARITY CLEAR (CLEAR); UR COLOR STRAW (YELLOW); UR GLUCOSE (Dip) 1+ mg/dL (NEGATIVE); UR KETONES (Dip) 1+ mg/dL (NEGATIVE); UR LEUKOCYTE ESTERASE (Dip) NEGATIVE Leu/ul (NEGATIVE); UR NITRITE (Dip) NEGATIVE (NEGATIVE); UR RBC 1 /HPF (0-5); UR TOTAL PROTEIN (Dip) NEGATIVE (NEGATIVE); UR UROBILINOGEN (Dip) NEGATIVE (NEGATIVE)
[2017-08-07] VITALS (16 sets, daily range): BP systolic 115–154; BP diastolic 62–85; PULSE 64–84; RESP 16–18
[2017-08-07] MEDS: ACCU-CHEK XX SCH ×2 (02:00)
[2017-08-07] MEDS: DIPHENHYDRAMINE 50 MG INJ IV SCH (03:28)
[2017-08-07] MEDS: DEXAMETHASONE 10 MG/ML 10 MG, ONDANSETRON INJ 16 MG in SOD CHLORIDE 0.9% 50 ML IV SCH (03:28)
[2017-08-07] MEDS: SOD CHLORIDE 0.9% IV SCH ×5 (03:47→15:08)
[2017-08-07] MEDS: MESNA IV SCH ×3 (03:47→15:08)
[2017-08-07] MEDS: IFOSFAMIDE IV SCH (04:46)
[2017-08-07 05:27] LABS: BASOPHILS % 0.4 % (0.0-2.0); EOSINOPHILS # 0.1 10^3/ul (0.0-0.5); EOSINOPHILS % 0.8 % (0.0-7.0); HEMATOCRIT 34.9 % (42.0-52.0); HEMOGLOBIN 11.4 g/dl (14.0-18.0); LYMPHOCYTES # 1.4 10^3/ul (0.8-2.9); LYMPHOCYTES % 13.9 % (15.0-51.0); MEAN CORPUSCULAR HEMOGLOBIN 28.4 pg (29.0-33.0); MEAN CORPUSCULAR HGB CONC 32.7 g/dl (32.0-37.0); MEAN CORPUSCULAR VOLUME 86.8 fl (82.0-101.0); MONOCYTE # 0.8 10^3/ul (0.3-0.9); MONOCYTES % 8.4 % (0.0-11.0); NEUTROPHILS % 75.8 % (39.0-77.0); PLATELET COUNT 286 10^3/UL (140-415); RED BLOOD COUNT 4.02 10^6/ul (4.70-6.10); RED CELL DISTRIBUTION WIDTH 12.1 % (11.5-14.5); WHITE BLOOD COUNT 9.9 10^3/ul (4.8-10.8)
[2017-08-07 06:02] LABS: MAGNESIUM 2.1 mg/dl (1.7-2.5); PHOSPHORUS 3.7 mg/dl (2.5-4.9)
[2017-08-07 06:11] LABS: CALCIUM 8.9 mg/dl (8.4-10.2); CREATININE 0.82 mg/dl (0.61-1.24); POTASSIUM 4.7 mmol/L (3.5-5.1)
[2017-08-07] MEDS: DOXORUBICIN IV SCH (07:39)
[2017-08-07] MEDS: SOD CHLORIDE 0.9% 1,000 ML IV SCH (07:39)
[2017-08-07] MEDS: INSULIN ASPART [NOVOLOG] 3 ML PEN SC SCH ×4 (07:50→21:00)
[2017-08-07] MEDS: LISINOPRIL 20 MG TAB PO SCH (08:43)
[2017-08-07] MEDS: ASPIRIN (EC) 81 MG TAB PO SCH (08:43)
[2017-08-07] MEDS: metFORMIN 500 MG TAB PO SCH ×2 (08:43→17:50)
[2017-08-07] MEDS: FAMOTIDINE 20 MG TAB PO SCH ×2 (08:43→21:05)
--- NOTE | 2017-08-07 09:17 | PN ---
Date/Time of Note Date/Time of Note DATE: 08/07/17 TIME: 09:16 Assessment/Plan VTE Prophylaxis VTE Prophylaxis Intervention: ambulation Lines/Catheters IV [facility] PICC Line Central line still needed: Yes Urinary Cath still in place: No Assessment/Plan Chief Complaint/Hosp Course 1. Newly diagnosed undifferentiated pleomorphic sarcoma. The patient on Adriamycin/ Ifosfamide/ Mesna. S/P PICC line insertion. 2D echo showing preserved left ventricular ejection fraction. 2. Type 2 diabetes mellitus. The patient will be continued on metformin. Hemoglobin A1c 6.0. 3. Essential hypertension. The patient will be continued on his home antihypertensives. 4. Fluids, electrolytes, and nutrition. Carbohydrate controlled diet. 5. DVT prophylaxis. Ambulation. 6. Plan. Continue current management. Chemotherapy as per oncology. Case discussed with Dr. Vang. Problems: Subjective 24 Hr Interval Summary Free Text/Dictation Denies any complaints. Exam/Review of Systems Vital Signs Vitals Vital Signs Date Time Temp Pulse Resp B/P Pulse Ox O2 Delivery O2 Flow Rate FiO2 08/07/17 08:09 98.5 85 18 122/69 98 08/07/17 06:00 Room Air Intake and Output 08/06/17 08/06/17 08/07/17 15:00 23:00 07:00 Intake Total 225.2 ml 2202 ml 1895 ml Balance 225.2 ml 2202 ml 1895 ml Exam General: Adequately build 62 year-old male lying in bed in no apparent distress. HEENT: Normocephalic, atraumatic. Eyes: Anicteric sclerae, conjunctivae clear. ENT: Nasal septum midline, oral mucosa moist. Neck supple, no JVD noticed. Respiratory: Bilaterally clear breath sounds. No use of accessory muscles of respiration. No adventitious breath sounds. Cardiovascular: S1, S2 heard. No murmurs or gallops. Abdomen: Nontender, and nondistended. Bowel sounds positive in all 4 quadrants. Right sided solid mass with no tenderness upon palpation. Genitourinary: Deferred. Extremities: No cyanosis, no clubbing, no edema. Peripheral pulses palpable. Neurologic: Cranial nerves II through XII grossly intact. The patient is awake, alert, and oriented. Skin: Normal skin turgor. No skin rashes. Results Result Diagram: 08/07/17 0426 08/07/17 0426 Results 24 hrs Laboratory Tests Test 08/06/17 12:23 08/06/17 17:29 08/06/17 20:41 08/07/17 04:26 Bedside Glucose 141 103 117 White Blood Count 9.9 Red Blood Count 4.02 L Hemoglobin 11.4 L Hematocrit 34.9 L Mean Corpuscular Volume 86.8 Mean Corpuscular Hemoglobin 28.4 L Mean Corpuscular Hemoglobin Concent 32.7 Red Cell Distribution Width 12.1 Platelet Count 286 Mean Platelet Volume 10.0 Neutrophils % 75.8 Lymphocytes % 13.9 L Monocytes % 8.4 Eosinophils % 0.8 Basophils % 0.4 Nucleated Red Blood Cells % 0.0 Neutrophils # (Manual) 7.5 Lymphocytes # 1.4 Monocytes # 0.8 Eosinophils # 0.1 Basophils # 0.0 Nucleated Red Blood Cells # 0.0 Sodium Level 143 Potassium Level 4.7 Chloride Level 107 Carbon Dioxide Level 30 Anion Gap 11 Blood Urea Nitrogen 16 Creatinine 0.82 Glucose Level 100 # Calcium Level 8.9 Phosphorus Level 3.7 Magnesium Level 2.1 Test 08/07/17 08:46 Bedside Glucose 123 Medications Medications Current Medications Aspirin (Halfprin) 81 mg DAILY PO Last administered on 08/07/17 08:43; Admin Dose 81 MG; Start 08/05/17 at 09:00 Lisinopril (Zestril) 20 mg DAILY PO Last administered on 08/07/17 08:43; Admin Dose 20 MG; Start 08/05/17 at 09:00 Miscellaneous Information 1 ea NOTE XX ; Start 08/04/17 at 11:00 Glucose (Glutose) 15 gm Q15M PRN PO DECREASED GLUCOSE; Start 08/04/17 at 11:00 Glucose (Glutose) 22.5 gm Q15M PRN PO DECREASED GLUCOSE; Start 08/04/17 at 11:00 Dextrose (D50w Syringe) 25 ml Q15M PRN IV DECREASED GLUCOSE; Start 08/04/17 at 11:00 Dextrose (D50w Syringe) 50 ml Q15M PRN IV DECREASED GLUCOSE; Start 08/04/17 at 11:00 Glucagon (Glucagen) 1 mg Q15M PRN IM DECREASED GLUCOSE; Start 08/04/17 at 11:00 Glucose (Glutose) 15 gm Q15M PRN BUCCAL DECREASED GLUCOSE; Start 08/04/17 at 11: 00 Ondansetron HCl (Zofran Inj) 4 mg Q6H PRN IV NAUSEA AND/OR VOMITING; Start 08/04 at 11:30 Acetaminophen (Tylenol Tab) 650 mg Q6H PRN PO PAIN LEVEL 1-3 OR FEVER Last administered on 08/05/17 12:43; Admin Dose 650 MG; Start 08/04/17 at 11:30 Famotidine (Pepcid) 20 mg Q12 PO Last administered on 08/07/17 08:43; Admin Dose 20 MG; Start 08/04/17 at 21:00 Diagnostic Test (Pha) (Accu-Chek) 1 ea 02 XX ; Start 08/05/17 at 02:00 Diagnostic Test (Pha) (Accu-Chek) 1 ea 02 XX ; Start 08/05/17 at 02:00 IV Flush 10 ml 10 ml PRN PRN IV IV PROTOCOL; Start 08/04/17 at 17:30 Sodium Chloride (NS) 1,000 ml @ 50 mls/hr Q20H IV Last administered on 07:39; Admin Dose 50 MLS/HR; Start 08/05/17 at 11:00 Diphenhydramine HCl (Benadryl) 25 mg Q4H PRN IV ALLERGIC RXN; Start 08/05/17 at 20:00 Methylprednisolone Sodium Succinate (Solu-Medrol) 60 mg Q4H PRN IV ALLERGIC RXN ; Start 08/05/17 at 20:00 Diphenhydramine HCl 25 mg 25 mg Q24H IV Last administered on 08/07/17 03:28; Admin Dose 25 MG; Start 08/05/17 at 21:00; Stop 08/07/17 at 21:01 Dexamethasone 10 mg/Ondansetron HCl 16 mg/Sodium Chloride 59 ml @ 120 mls/hr Q24H IV Last administered on 08/07/17 03:28; Admin Dose 120 MLS/HR; Start 08/05 at 21:00; Stop 08/07/17 at 21:30 Mesna 1260 mg/ Sodium Chloride 112.6 ml @ 113 mls/hr Q24H IV Last administered on 08/07/17 03:47; Admin Dose 113 MLS/HR; Start 08/05/17 at 22:00; Stop 08/07/17 at 23:00 Ifosfamide 3 gm/ Ifosfamide 1.2 gm/ Sodium Chloride 250 ml @ 125 mls/hr Q24H IV Last administered on 08/07/17 04:46; Admin Dose 125 MLS/HR; Start 08/05/17 at 23:00; Stop 08/08/17 at 00:59 Doxorubicin HCl 40 mg/Sodium Chloride 500 ml @ 21 mls/hr Q24H IV Last administered on 08/07/17 07:39; Admin Dose 21 MLS/HR; Start 08/06/17 at 02:00; Stop 08/09/17 at 01:49 Mesna 1260 mg/ Sodium Chloride 112.6 ml @ 113 mls/hr Q24H IV Last administered on 08/06/17 06:51; Admin Dose 113 MLS/HR; Start 08/06/17 at 05:00; Stop 08/08/17 at 06:00 Mesna/Sodium Chloride (Mesna/NS) 112.6 ml @ 113 mls/hr Q24H IV Last administered on 08/06/17 10:58; Admin Dose 113 MLS/HR; Start 08/06/17 at 09:00; Stop 08/08/17 at 10:00 Filgrastim (Neupogen) 480 mcg DAILY@17 SC ; Start 08/09/17 at 17:00; Stop at 17:01 EMA WHALEY NP Aug 07, 2017 09:17
--- NOTE | 2017-08-07 10:39 | CONS ---
Date/Time of Note Date/Time of Note DATE: 08/07/17 TIME: 10:36 Assessment/Plan Assessment/Plan Chief Complaint/Hosp Course #poorly differentiated sarcoma -pt to continue with neoadjuvant chemotherapy with Adriamycin/ Ifosfamide/ Mesna. plan for 3 cycles total then evaluate for surgical resection -day 3 to start this evening -will need to check daily UA to evaluate for hemorrhagic cystitis. baseline UA done -pt will need a total of 3 cycles 3 weeks apart -PICC line has been inserted -ECHO has normal EF #Diabetes -continue DM management per primary team -pt on metformin #HTN -BP currently under good control -continue current BP meds per primary Problems: (1) Pleomorphic cell sarcoma Status: Acute (2) Diabetes Status: Chronic Qualifiers: Diabetes mellitus type: type 2 (3) Hypertension Status: Chronic Consultation Date/Type/Reason Admit Date/Time Aug 04, 2017 at 09:50 Initial Consult Date 08/04/17 Type of Consultation: Oncology Referring Provider: EMA WHALEY NP 24 HR Interval Summary Free Text/Dictation no acute overnight events. pt is tolerating chemotherapy well. feels that the mass is already decreasing in size Exam/Review of Systems Vital Signs Vitals Vital Signs Date Time Temp Pulse Resp B/P Pulse Ox O2 Delivery O2 Flow Rate FiO2 08/07/17 08:09 98.5 85 18 122/69 98 08/07/17 06:00 Room Air Intake and Output 08/06/17 08/06/17 08/07/17 14:59 22:59 06:59 Intake Total 225.2 ml 2202 ml 1895 ml Balance 225.2 ml 2202 ml 1895 ml Exam Constitutional: alert, oriented Psych: no complaints Head: normocephalic Eyes: nl conjunctiva ENMT: nl external ears & nose Neck: supple Respiratory: clear to auscultation Cardiovascular: regular rate and rhythm Gastrointestinal: other (mass in RLQ non tender), soft Musculoskeletal: nl extremities to inspection Extremities: normal pulses Skin: nl turgor Results Result Diagram: 08/07/17 0426 08/07/17 0426 Results 24 hrs Laboratory Tests Test 08/06/17 12:23 08/06/17 17:29 08/06/17 20:41 08/07/17 04:26 Bedside Glucose 141 103 117 White Blood Count 9.9 Red Blood Count 4.02 L Hemoglobin 11.4 L Hematocrit 34.9 L Mean Corpuscular Volume 86.8 Mean Corpuscular Hemoglobin 28.4 L Mean Corpuscular Hemoglobin Concent 32.7 Red Cell Distribution Width 12.1 Platelet Count 286 Mean Platelet Volume 10.0 Neutrophils % 75.8 Lymphocytes % 13.9 L Monocytes % 8.4 Eosinophils % 0.8 Basophils % 0.4 Nucleated Red Blood Cells % 0.0 Neutrophils # (Manual) 7.5 Lymphocytes # 1.4 Monocytes # 0.8 Eosinophils # 0.1 Basophils # 0.0 Nucleated Red Blood Cells # 0.0 Sodium Level 143 Potassium Level 4.7 Chloride Level 107 Carbon Dioxide Level 30 Anion Gap 11 Blood Urea Nitrogen 16 Creatinine 0.82 Glucose Level 100 # Calcium Level 8.9 Phosphorus Level 3.7 Magnesium Level 2.1 Test 08/07/17 08:46 Bedside Glucose 123 Medications Medications Current Medications Aspirin (Halfprin) 81 mg DAILY PO Last administered on 08/07/17 08:43; Admin Dose 81 MG; Start 08/05/17 at 09:00 Lisinopril (Zestril) 20 mg DAILY PO Last administered on 08/07/17 08:43; Admin Dose 20 MG; Start 08/05/17 at 09:00 Miscellaneous Information 1 ea NOTE XX ; Start 08/04/17 at 11:00 Glucose (Glutose) 15 gm Q15M PRN PO DECREASED GLUCOSE; Start 08/04/17 at 11:00 Glucose (Glutose) 22.5 gm Q15M PRN PO DECREASED GLUCOSE; Start 08/04/17 at 11:00 Dextrose (D50w Syringe) 25 ml Q15M PRN IV DECREASED GLUCOSE; Start 08/04/17 at 11:00 Dextrose (D50w Syringe) 50 ml Q15M PRN IV DECREASED GLUCOSE; Start 08/04/17 at 11:00 Glucagon (Glucagen) 1 mg Q15M PRN IM DECREASED GLUCOSE; Start 08/04/17 at 11:00 Glucose (Glutose) 15 gm Q15M PRN BUCCAL DECREASED GLUCOSE; Start 08/04/17 at 11: 00 Ondansetron HCl (Zofran Inj) 4 mg Q6H PRN IV NAUSEA AND/OR VOMITING; Start 08/04 at 11:30 Acetaminophen (Tylenol Tab) 650 mg Q6H PRN PO PAIN LEVEL 1-3 OR FEVER Last administered on 08/05/17 12:43; Admin Dose 650 MG; Start 08/04/17 at 11:30 Famotidine (Pepcid) 20 mg Q12 PO Last administered on 08/07/17 08:43; Admin Dose 20 MG; Start 08/04/17 at 21:00 Diagnostic Test (Pha) (Accu-Chek) 1 ea 02 XX ; Start 08/05/17 at 02:00 Diagnostic Test (Pha) (Accu-Chek) 1 ea 02 XX ; Start 08/05/17 at 02:00 IV Flush 10 ml 10 ml PRN PRN IV IV PROTOCOL; Start 08/04/17 at 17:30 Sodium Chloride (NS) 1,000 ml @ 50 mls/hr Q20H IV Last administered on 07:39; Admin Dose 50 MLS/HR; Start 08/05/17 at 11:00 Diphenhydramine HCl (Benadryl) 25 mg Q4H PRN IV ALLERGIC RXN; Start 08/05/17 at 20:00 Methylprednisolone Sodium Succinate (Solu-Medrol) 60 mg Q4H PRN IV ALLERGIC RXN ; Start 08/05/17 at 20:00 Diphenhydramine HCl 25 mg 25 mg Q24H IV Last administered on 08/07/17 03:28; Admin Dose 25 MG; Start 08/05/17 at 21:00; Stop 08/07/17 at 21:01 Dexamethasone 10 mg/Ondansetron HCl 16 mg/Sodium Chloride 59 ml @ 120 mls/hr Q24H IV Last administered on 08/07/17 03:28; Admin Dose 120 MLS/HR; Start 08/05 at 21:00; Stop 08/07/17 at 21:30 Mesna 1260 mg/ Sodium Chloride 112.6 ml @ 113 mls/hr Q24H IV Last administered on 08/07/17 03:47; Admin Dose 113 MLS/HR; Start 08/05/17 at 22:00; Stop 08/07/17 at 23:00 Ifosfamide 3 gm/ Ifosfamide 1.2 gm/ Sodium Chloride 250 ml @ 125 mls/hr Q24H IV Last administered on 08/07/17 04:46; Admin Dose 125 MLS/HR; Start 08/05/17 at 23:00; Stop 08/08/17 at 00:59 Doxorubicin HCl 40 mg/Sodium Chloride 500 ml @ 21 mls/hr Q24H IV Last administered on 08/07/17 07:39; Admin Dose 21 MLS/HR; Start 08/06/17 at 02:00; Stop 08/09/17 at 01:49 Mesna 1260 mg/ Sodium Chloride 112.6 ml @ 113 mls/hr Q24H IV Last administered on 08/06/17 06:51; Admin Dose 113 MLS/HR; Start 08/06/17 at 05:00; Stop 08/08/17 at 06:00 Mesna/Sodium Chloride (Mesna/NS) 112.6 ml @ 113 mls/hr Q24H IV Last administered on 08/06/17 10:58; Admin Dose 113 MLS/HR; Start 08/06/17 at 09:00; Stop 08/08/17 at 10:00 Filgrastim (Neupogen) 480 mcg DAILY@17 SC ; Start 08/09/17 at 17:00; Stop at 17:01 DOMINIQUE LAMBERT M.D. Aug 07, 2017 10:39
[2017-08-08] VITALS (7 sets, daily range): BP systolic 118–139; BP diastolic 73–82; PULSE 83–91; RESP 16–20
[2017-08-08] MEDS: ACCU-CHEK XX SCH ×2 (01:38)
[2017-08-08] MEDS: ACETAMINOPHEN 325 MG TAB PO PRN (04:52)
[2017-08-08 05:48] LABS: BASOPHILS % 0.5 % (0.0-2.0); EOSINOPHILS # 0.1 10^3/ul (0.0-0.5); EOSINOPHILS % 1.2 % (0.0-7.0); HEMATOCRIT 35.8 % (42.0-52.0); HEMOGLOBIN 11.3 g/dl (14.0-18.0); LYMPHOCYTES # 1.4 10^3/ul (0.8-2.9); LYMPHOCYTES % 16.5 % (15.0-51.0); MEAN CORPUSCULAR HEMOGLOBIN 27.5 pg (29.0-33.0); MEAN CORPUSCULAR HGB CONC 31.6 g/dl (32.0-37.0); MEAN CORPUSCULAR VOLUME 87.1 fl (82.0-101.0); MEAN PLATELET VOLUME 10.1 fl (7.4-10.4); MONOCYTE # 0.8 10^3/ul (0.3-0.9); MONOCYTES % 9.7 % (0.0-11.0); NEUTROPHILS % 71.7 % (39.0-77.0); PLATELET COUNT 278 10^3/UL (140-415); RED BLOOD COUNT 4.11 10^6/ul (4.70-6.10); RED CELL DISTRIBUTION WIDTH 12.4 % (11.5-14.5); WHITE BLOOD COUNT 8.3 10^3/ul (4.8-10.8)
[2017-08-08] MEDS: SOD CHLORIDE 0.9% 1,000 ML IV SCH (05:58)
[2017-08-08 06:06] LABS: MAGNESIUM 2.2 mg/dl (1.7-2.5); PHOSPHORUS 3.8 mg/dl (2.5-4.9)
[2017-08-08 06:16] LABS: ADD UMIC NO; UR ASCORBIC ACID NEGATIVE (NEGATIVE); UR BILIRUBIN (Dip) NEGATIVE (NEGATIVE); UR BLOOD (Dip) NEGATIVE (NEGATIVE); UR CLARITY CLEAR (CLEAR); UR COLOR STRAW (YELLOW); UR GLUCOSE (Dip) 1+ mg/dL (NEGATIVE); UR KETONES (Dip) NEGATIVE (NEGATIVE); UR LEUKOCYTE ESTERASE (Dip) NEGATIVE Leu/ul (NEGATIVE); UR NITRITE (Dip) NEGATIVE (NEGATIVE); UR SPECIFIC GRAVITY (Dip) 1.006 (1.003-1.030); UR TOTAL PROTEIN (Dip) NEGATIVE (NEGATIVE); UR UROBILINOGEN (Dip) NEGATIVE (NEGATIVE)
[2017-08-08 06:17] LABS: CALCIUM 9.1 mg/dl (8.4-10.2); CREATININE 0.8 mg/dl (0.61-1.24); POTASSIUM 3.9 mmol/L (3.5-5.1)
[2017-08-08] MEDS: INSULIN ASPART [NOVOLOG] 3 ML PEN SC SCH ×4 (07:50→21:00)
[2017-08-08] MEDS: ASPIRIN (EC) 81 MG TAB PO SCH (08:45)
[2017-08-08] MEDS: LISINOPRIL 20 MG TAB PO SCH (08:46)
[2017-08-08] MEDS: FAMOTIDINE 20 MG TAB PO SCH ×2 (08:46→21:12)
[2017-08-08] MEDS: metFORMIN 500 MG TAB PO SCH ×2 (08:48→18:32)
[2017-08-08] MEDS: DEXAMETHASONE 10 MG/ML 10 MG, ONDANSETRON INJ 16 MG in SOD CHLORIDE 0.9% 50 ML IV SCH (11:15)
[2017-08-08] MEDS: DIPHENHYDRAMINE 50 MG INJ IV SCH (11:15)
[2017-08-08] MEDS: SOD CHLORIDE 0.9% IV SCH ×4 (11:56→21:13)
[2017-08-08] MEDS: MESNA IV SCH ×2 (11:56→21:13)
[2017-08-08] MEDS: IFOSFAMIDE IV SCH (13:46)
--- NOTE | 2017-08-08 14:12 | PN ---
Date/Time of Note Date/Time of Note DATE: 08/08/17 TIME: 14:07 Assessment/Plan VTE Prophylaxis VTE Prophylaxis Intervention: ambulation Lines/Catheters IV [facility]ter Type (from [facility]): PICC Line Urinary Cath still in place: No Assessment/Plan Chief Complaint/Hosp Course Assessment and plan 1. Newly diagnosed undifferentiated pleomorphic sarcoma.. continue on adriamycin/ifosfamide/mesna per oncologist recomendations. 2. Type 2 diabetes. continue on metformin. of note HbA1c: 6.0 Diabetes and hypertension. Stable at present. Continue antihypertensives. Adjust as needed. DVT prophylaxis: Early intubation Disposition plan: Continue chemotherapy per oncologist. Patient noted with dysuria. Follow-up and urine cultures. Discussed plan of care with Dr. Baez Problems: Subjective 24 Hr Interval Summary Free Text/Dictation reports having some dysuria, but otherwise no other pain reported Exam/Review of Systems Vital Signs Vitals Vital Signs Date Time Temp Pulse Resp B/P Pulse Ox O2 Delivery O2 Flow Rate FiO2 08/08/17 07:34 97.9 82 18 129/80 97 08/07/17 17:53 Room Air Intake and Output 08/07/17 08/07/17 08/08/17 15:00 23:00 07:00 Intake Total 463 ml 2423 ml 1452 ml Balance 463 ml 2423 ml 1452 ml Exam Constitutional: alert, oriented Head: normocephalic Respiratory: normal air movement Cardiovascular: regular rate and rhythm Gastrointestinal: other (mass noted on right lower abdominal quadrant ) Musculoskeletal: nl extremities to inspection Neurological: [employer]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, nl mental status, nl speech Skin: No rash or lesions Results Result Diagram: 08/08/17 0431 08/08/17 0431 Results 24 hrs Laboratory Tests Test 08/07/17 17:49 08/07/17 21:03 08/08/17 04:30 08/08/17 04:31 Bedside Glucose 116 83 Urine Color STRAW Urine Clarity CLEAR Urine pH 6.0 Urine Specific [place] 1.006 Urine Ketones NEGATIVE Urine Nitrite NEGATIVE Urine Bilirubin NEGATIVE Urine Urobilinogen NEGATIVE Urine Leukocyte Esterase NEGATIVE Urine Hemoglobin NEGATIVE Urine Glucose 1+ H Urine Total Protein NEGATIVE White Blood Count 8.3 Red Blood Count 4.11 L Hemoglobin 11.3 L Hematocrit 35.8 L Mean Corpuscular Volume 87.1 Mean Corpuscular Hemoglobin 27.5 L Mean Corpuscular Hemoglobin Concent 31.6 L Red Cell Distribution Width 12.4 Platelet Count 278 Mean Platelet Volume 10.1 Neutrophils % 71.7 Lymphocytes % 16.5 Monocytes % 9.7 Eosinophils % 1.2 Basophils % 0.5 Nucleated Red Blood Cells % 0.0 Neutrophils # (Manual) 5.9 Lymphocytes # 1.4 Monocytes # 0.8 Eosinophils # 0.1 Basophils # 0.0 Nucleated Red Blood Cells # 0.0 Sodium Level 142 Potassium Level 3.9 Chloride Level 107 Carbon Dioxide Level 28 Anion Gap 11 Blood Urea Nitrogen 16 Creatinine 0.80 Glucose Level 81 Calcium Level 9.1 Phosphorus Level 3.8 Magnesium Level 2.2 Test 08/08/17 08:38 08/08/17 12:40 Bedside Glucose 80 97 Medications Medications Current Medications Aspirin (Halfprin) 81 mg DAILY PO Last administered on 08/08/17 08:45; Admin Dose 81 MG; Start 08/05/17 at 09:00 Lisinopril (Zestril) 20 mg DAILY PO Last administered on 08/08/17 08:46; Admin Dose 20 MG; Start 08/05/17 at 09:00 Miscellaneous Information 1 ea NOTE XX ; Start 08/04/17 at 11:00 Glucose (Glutose) 15 gm Q15M PRN PO DECREASED GLUCOSE; Start 08/04/17 at 11:00 Glucose (Glutose) 22.5 gm Q15M PRN PO DECREASED GLUCOSE; Start 08/04/17 at 11:00 Dextrose (D50w Syringe) 25 ml Q15M PRN IV DECREASED GLUCOSE; Start 08/04/17 at 11:00 Dextrose (D50w Syringe) 50 ml Q15M PRN IV DECREASED GLUCOSE; Start 08/04/17 at 11:00 Glucagon (Glucagen) 1 mg Q15M PRN IM DECREASED GLUCOSE; Start 08/04/17 at 11:00 Glucose (Glutose) 15 gm Q15M PRN BUCCAL DECREASED GLUCOSE; Start 08/04/17 at 11: 00 Ondansetron HCl (Zofran Inj) 4 mg Q6H PRN IV NAUSEA AND/OR VOMITING; Start 08/04 at 11:30 Acetaminophen (Tylenol Tab) 650 mg Q6H PRN PO PAIN LEVEL 1-3 OR FEVER Last administered on 08/08/17 04:52; Admin Dose 650 MG; Start 08/04/17 at 11:30 Famotidine (Pepcid) 20 mg Q12 PO Last administered on 08/08/17 08:46; Admin Dose 20 MG; Start 08/04/17 at 21:00 Diagnostic Test (Pha) (Accu-Chek) 1 ea 02 XX ; Start 08/05/17 at 02:00 Diagnostic Test (Pha) (Accu-Chek) 1 ea 02 XX ; Start 08/05/17 at 02:00 IV Flush 10 ml 10 ml PRN PRN IV IV PROTOCOL; Start 08/04/17 at 17:30 Sodium Chloride (NS) 1,000 ml @ 50 mls/hr Q20H IV Last administered on 05:58; Admin Dose 50 MLS/HR; Start 08/05/17 at 11:00 Diphenhydramine HCl (Benadryl) 25 mg Q4H PRN IV ALLERGIC RXN; Start 08/05/17 at 20:00 Methylprednisolone Sodium Succinate 60 mg 60 mg Q4H PRN IV ALLERGIC RXN; Start 08/05/17 at 20:00 Doxorubicin HCl/ Sodium Chloride (Adriamycin/NS) 500 ml @ 21 mls/hr Q24H IV Last administered on 08/07/17 07:39; Admin Dose 21 MLS/HR; Start 08/06/17 at 02: 00; Stop 08/09/17 at 01:49 Filgrastim (Neupogen) 480 mcg DAILY@17 SC ; Start 08/09/17 at 17:00; Stop at 17:01 STELLA DAVE Aug 08, 2017 14:12
--- NOTE | 2017-08-08 14:15 | CONS ---
Date/Time of Note Date/Time of Note DATE: 08/08/17 TIME: 14:09 Assessment/Plan Assessment/Plan Chief Complaint/Hosp Course #poorly differentiated sarcoma -pt to continue with neoadjuvant chemotherapy with Adriamycin/ Ifosfamide/ Mesna. plan for 3 cycles total then evaluate for surgical resection -pt has been seen by [facility] surgical oncologist and [facility] sarcoma specialist. Per their recs we will continue with 3 cycles of AIM then proceed to XRT with or without ifex 1000mg/m2 D1-5 and D29-33. -after neoadjuvant chemotherapy and chemo/ rads, will see it patient is surgically resectable. -day 3 to start this evening -will need to check daily UA to evaluate for hemorrhagic cystitis. baseline UA done -pt will need a total of 3 cycles 3 weeks apart -PICC line has been inserted -ECHO has normal EF #Diabetes -continue DM management per primary team -pt on metformin #HTN -BP currently under good control -continue current BP meds per primary Problems: (1) Pleomorphic cell sarcoma Status: Acute (2) Diabetes Status: Chronic Qualifiers: Diabetes mellitus type: type 2 (3) Hypertension Status: Chronic Consultation Date/Type/Reason Admit Date/Time Aug 04, 2017 at 09:50 Initial Consult Date 08/04/17 Type of Consultation: Oncology Reason for Consultation pleomorphic sarcoma Referring Provider: EMA WHALEY NP 24 HR Interval Summary Free Text/Dictation pt is tolerating chemotherapy well. less abdominal pain Exam/Review of Systems Vital Signs Vitals Vital Signs Date Time Temp Pulse Resp B/P Pulse Ox O2 Delivery O2 Flow Rate FiO2 08/08/17 07:34 97.9 82 18 129/80 97 08/07/17 17:53 Room Air Intake and Output 08/07/17 08/07/17 08/08/17 15:00 23:00 07:00 Intake Total 463 ml 2423 ml 1452 ml Balance 463 ml 2423 ml 1452 ml Exam Constitutional: alert, oriented Psych: no complaints Head: normocephalic Eyes: nl conjunctiva ENMT: nl external ears & nose Neck: non-tender, supple Respiratory: clear to auscultation Cardiovascular: nl pulses, regular rate and rhythm Gastrointestinal: soft Musculoskeletal: nl extremities to inspection Extremities: normal pulses Results Result Diagram: 9/11/17 0431 9/11/17 0431 Results 24 hrs Laboratory Tests Test 08/07/17 17:49 08/07/17 21:03 08/08/17 04:30 08/08/17 04:31 Bedside Glucose 116 83 Urine Color STRAW Urine Clarity CLEAR Urine pH 6.0 Urine Specific [place] 1.006 Urine Ketones NEGATIVE Urine Nitrite NEGATIVE Urine Bilirubin NEGATIVE Urine Urobilinogen NEGATIVE Urine Leukocyte Esterase NEGATIVE Urine Hemoglobin NEGATIVE Urine Glucose 1+ H Urine Total Protein NEGATIVE White Blood Count 8.3 Red Blood Count 4.11 L Hemoglobin 11.3 L Hematocrit 35.8 L Mean Corpuscular Volume 87.1 Mean Corpuscular Hemoglobin 27.5 L Mean Corpuscular Hemoglobin Concent 31.6 L Red Cell Distribution Width 12.4 Platelet Count 278 Mean Platelet Volume 10.1 Neutrophils % 71.7 Lymphocytes % 16.5 Monocytes % 9.7 Eosinophils % 1.2 Basophils % 0.5 Nucleated Red Blood Cells % 0.0 Neutrophils # (Manual) 5.9 Lymphocytes # 1.4 Monocytes # 0.8 Eosinophils # 0.1 Basophils # 0.0 Nucleated Red Blood Cells # 0.0 Sodium Level 142 Potassium Level 3.9 Chloride Level 107 Carbon Dioxide Level 28 Anion Gap 11 Blood Urea Nitrogen 16 Creatinine 0.80 Glucose Level 81 Calcium Level 9.1 Phosphorus Level 3.8 Magnesium Level 2.2 Test 08/08/17 08:38 08/08/17 12:40 Bedside Glucose 80 97 Medications Medications Current Medications Aspirin (Halfprin) 81 mg DAILY PO Last administered on 08/08/17 08:45; Admin Dose 81 MG; Start 08/05/17 at 09:00 Lisinopril (Zestril) 20 mg DAILY PO Last administered on 08/08/17 08:46; Admin Dose 20 MG; Start 08/05/17 at 09:00 Miscellaneous Information 1 ea NOTE XX ; Start 08/04/17 at 11:00 Glucose (Glutose) 15 gm Q15M PRN PO DECREASED GLUCOSE; Start 08/04/17 at 11:00 Glucose (Glutose) 22.5 gm Q15M PRN PO DECREASED GLUCOSE; Start 08/04/17 at 11:00 Dextrose (D50w Syringe) 25 ml Q15M PRN IV DECREASED GLUCOSE; Start 08/04/17 at 11:00 Dextrose (D50w Syringe) 50 ml Q15M PRN IV DECREASED GLUCOSE; Start 08/04/17 at 11:00 Glucagon (Glucagen) 1 mg Q15M PRN IM DECREASED GLUCOSE; Start 08/04/17 at 11:00 Glucose (Glutose) 15 gm Q15M PRN BUCCAL DECREASED GLUCOSE; Start 08/04/17 at 11: 00 Ondansetron HCl (Zofran Inj) 4 mg Q6H PRN IV NAUSEA AND/OR VOMITING; Start 08/04 at 11:30 Acetaminophen (Tylenol Tab) 650 mg Q6H PRN PO PAIN LEVEL 1-3 OR FEVER Last administered on 08/08/17 04:52; Admin Dose 650 MG; Start 08/04/17 at 11:30 Famotidine (Pepcid) 20 mg Q12 PO Last administered on 08/08/17 08:46; Admin Dose 20 MG; Start 08/04/17 at 21:00 Diagnostic Test (Pha) (Accu-Chek) 1 ea 02 XX ; Start 08/05/17 at 02:00 Diagnostic Test (Pha) (Accu-Chek) 1 ea 02 XX ; Start 08/05/17 at 02:00 IV Flush 10 ml 10 ml PRN PRN IV IV PROTOCOL; Start 08/04/17 at 17:30 Sodium Chloride (NS) 1,000 ml @ 50 mls/hr Q20H IV Last administered on 05:58; Admin Dose 50 MLS/HR; Start 08/05/17 at 11:00 Diphenhydramine HCl (Benadryl) 25 mg Q4H PRN IV ALLERGIC RXN; Start 08/05/17 at 20:00 Methylprednisolone Sodium Succinate 60 mg 60 mg Q4H PRN IV ALLERGIC RXN; Start 08/05/17 at 20:00 Doxorubicin HCl/ Sodium Chloride (Adriamycin/NS) 500 ml @ 21 mls/hr Q24H IV Last administered on 08/07/17 07:39; Admin Dose 21 MLS/HR; Start 08/06/17 at 02: 00; Stop 08/09/17 at 01:49 Filgrastim (Neupogen) 480 mcg DAILY@17 SC ; Start 08/09/17 at 17:00; Stop at 17:01 DOMINIQUE LAMBERT M.D. Aug 08, 2017 14:15
[2017-08-08] MEDS: DOXORUBICIN IV SCH (18:23)
[2017-08-09 00:20] VITALS: BP 130/63; RESP 20
[2017-08-09] MEDS: MESNA IV SCH (01:04)
[2017-08-09] MEDS: SOD CHLORIDE 0.9% IV SCH (01:04)
[2017-08-09] MEDS: ACCU-CHEK XX SCH ×2 (01:07)
[2017-08-09] MEDS: SOD CHLORIDE 0.9% 1,000 ML IV SCH (05:30)
[2017-08-09 05:49] LABS: BASOPHILS % 0.1 % (0.0-2.0); EOSINOPHILS % 0.5 % (0.0-7.0); HEMATOCRIT 33.4 % (42.0-52.0); LYMPHOCYTES # 1.1 10^3/ul (0.8-2.9); LYMPHOCYTES % 13.2 % (15.0-51.0); MEAN CORPUSCULAR HEMOGLOBIN 28.6 pg (29.0-33.0); MEAN CORPUSCULAR HGB CONC 32.9 g/dl (32.0-37.0); MEAN PLATELET VOLUME 10.1 fl (7.4-10.4); MONOCYTE # 0.7 10^3/ul (0.3-0.9); MONOCYTES % 7.7 % (0.0-11.0); NEUTROPHILS % 78.1 % (39.0-77.0); PLATELET COUNT 278 10^3/UL (140-415); RED BLOOD COUNT 3.84 10^6/ul (4.70-6.10); RED CELL DISTRIBUTION WIDTH 12.3 % (11.5-14.5); WHITE BLOOD COUNT 8.6 10^3/ul (4.8-10.8)
[2017-08-09 06:03] LABS: CALCIUM 9.1 mg/dl (8.4-10.2); CREATININE 0.79 mg/dl (0.61-1.24); POTASSIUM 3.9 mmol/L (3.5-5.1)
[2017-08-09 07:45] VITALS: BP 128/79; RESP 20
[2017-08-09] MEDS: INSULIN ASPART [NOVOLOG] 3 ML PEN SC SCH ×4 (07:50→21:00)
[2017-08-09] MEDS: ASPIRIN (EC) 81 MG TAB PO SCH (08:59)
[2017-08-09] MEDS: FAMOTIDINE 20 MG TAB PO SCH ×2 (08:59→21:00)
[2017-08-09] MEDS: LISINOPRIL 20 MG TAB PO SCH (08:59)
[2017-08-09] MEDS: metFORMIN 500 MG TAB PO SCH ×2 (09:01→18:01)
[2017-08-09 10:32] LABS: ADD UMIC NO; UR ASCORBIC ACID 40 mg/dL (NEGATIVE); UR BILIRUBIN (Dip) NEGATIVE (NEGATIVE); UR BLOOD (Dip) NEGATIVE (NEGATIVE); UR CLARITY CLEAR (CLEAR); UR COLOR YELLOW (YELLOW); UR GLUCOSE (Dip) 1+ mg/dL (NEGATIVE); UR KETONES (Dip) 2+ mg/dL (NEGATIVE); UR LEUKOCYTE ESTERASE (Dip) NEGATIVE Leu/ul (NEGATIVE); UR NITRITE (Dip) NEGATIVE (NEGATIVE); UR SPECIFIC GRAVITY (Dip) 1.016 (1.003-1.030); UR TOTAL PROTEIN (Dip) NEGATIVE (NEGATIVE); UR UROBILINOGEN (Dip) NEGATIVE (NEGATIVE)
[2017-08-09] MEDS: ACETAMINOPHEN 325 MG TAB PO PRN (12:41)
[2017-08-09 14:30] VITALS: BP 113/75; RESP 20
[2017-08-09] MEDS: FILGRASTIM 480 MCG INJ SC SCH (17:00)
[2017-08-09 20:32] VITALS: BP 151/86; RESP 20
--- NOTE | 2017-08-09 22:48 | CONS ---
Date/Time of Note Date/Time of Note DATE: 08/09/17 TIME: 22:44 Assessment/Plan Assessment/Plan Chief Complaint/Hosp Course #poorly differentiated sarcoma -to complete day 4 today -pt to continue with neoadjuvant chemotherapy with Adriamycin/ Ifosfamide/ Mesna. plan for 3 cycles total then evaluate for surgical resection -pt has been seen by [facility] surgical oncologist and [facility] sarcoma specialist. Per their recs we will continue with 3 cycles of AIM then proceed to XRT with or without ifex 1000mg/m2 D1-5 and D29-33. -after neoadjuvant chemotherapy and chemo/ rads, will see it patient is surgically resectable. -day 3 to start this evening -will need to check daily UA to evaluate for hemorrhagic cystitis. baseline UA done -pt will need a total of 3 cycles 3 weeks apart -PICC line has been inserted -ECHO has normal EF #Diabetes -continue DM management per primary team -pt on metformin #HTN -BP currently under good control -continue current BP meds per primary #Dispo -upcon discharge, pt will need [facility] along with q week CBC checks and PICC line care Problems: (1) Pleomorphic cell sarcoma Status: Acute (2) Diabetes Status: Chronic Qualifiers: Diabetes mellitus type: type 2 (3) Hypertension Status: Chronic Consultation Date/Type/Reason Admit Date/Time Aug 04, 2017 at 09:50 Initial Consult Date 08/04/17 Type of Consultation: Oncology Reason for Consultation pleomorphic sarcoma Referring Provider: EMA WHALEY NP 24 HR Interval Summary Free Text/Dictation no acute overnight events. pt tolerating chemotherapy well Exam/Review of Systems Vital Signs Vitals Vital Signs Date Time Temp Pulse Resp B/P Pulse Ox O2 Delivery O2 Flow Rate FiO2 08/09/17 20:32 98.3 90 20 151/86 99 08/08/17 18:25 Room Air Intake and Output 08/08/17 08/08/17 08/09/17 15:00 23:00 07:00 Intake Total 2382.6 ml 1537.6 ml Balance 2382.6 ml 1537.6 ml Exam Constitutional: alert, oriented Psych: no complaints Head: normocephalic Eyes: nl conjunctiva ENMT: nl external ears & nose Neck: non-tender, supple Respiratory: clear to auscultation, normal air movement Cardiovascular: regular rate and rhythm Musculoskeletal: nl extremities to inspection Results Result Diagram: 08/09/17 0450 08/09/17 0450 Results 24 hrs Laboratory Tests Test 08/09/17 04:50 08/09/17 07:40 08/09/17 08:49 08/09/17 12:23 White Blood Count 8.6 Red Blood Count 3.84 L Hemoglobin 11.0 L Hematocrit 33.4 L Mean Corpuscular Volume 87.0 Mean Corpuscular Hemoglobin 28.6 L Mean Corpuscular Hemoglobin Concent 32.9 Red Cell Distribution Width 12.3 Platelet Count 278 Mean Platelet Volume 10.1 Neutrophils % 78.1 H Lymphocytes % 13.2 L Monocytes % 7.7 Eosinophils % 0.5 Basophils % 0.1 Nucleated Red Blood Cells % 0.0 Neutrophils # (Manual) 6.7 Lymphocytes # 1.1 Monocytes # 0.7 Eosinophils # 0.0 Basophils # 0.0 Nucleated Red Blood Cells # 0.0 Sodium Level 139 Potassium Level 3.9 Chloride Level 106 Carbon Dioxide Level 26 Anion Gap 11 Blood Urea Nitrogen 14 Creatinine 0.79 Glucose Level 85 Calcium Level 9.1 Urine Color YELLOW Urine Clarity CLEAR Urine pH 6.0 Urine Specific [place] 1.016 Urine Ketones 2+ H Urine Nitrite NEGATIVE Urine Bilirubin NEGATIVE Urine Urobilinogen NEGATIVE Urine Leukocyte Esterase NEGATIVE Urine Hemoglobin NEGATIVE Urine Glucose 1+ H Urine Total Protein NEGATIVE Bedside Glucose 91 83 Test 08/09/17 17:56 08/09/17 20:53 Bedside Glucose 110 86 Medications Medications Current Medications Aspirin (Halfprin) 81 mg DAILY PO Last administered on 08/09/17 08:59; Admin Dose 81 MG; Start 08/05/17 at 09:00 Lisinopril (Zestril) 20 mg DAILY PO Last administered on 08/09/17 08:59; Admin Dose 20 MG; Start 08/05/17 at 09:00 Miscellaneous Information 1 ea NOTE XX ; Start 08/04/17 at 11:00 Glucose (Glutose) 15 gm Q15M PRN PO DECREASED GLUCOSE; Start 08/04/17 at 11:00 Glucose (Glutose) 22.5 gm Q15M PRN PO DECREASED GLUCOSE; Start 08/04/17 at 11:00 Dextrose (D50w Syringe) 25 ml Q15M PRN IV DECREASED GLUCOSE; Start 08/04/17 at 11:00 Dextrose (D50w Syringe) 50 ml Q15M PRN IV DECREASED GLUCOSE; Start 08/04/17 at 11:00 Glucagon (Glucagen) 1 mg Q15M PRN IM DECREASED GLUCOSE; Start 08/04/17 at 11:00 Glucose (Glutose) 15 gm Q15M PRN BUCCAL DECREASED GLUCOSE; Start 08/04/17 at 11: 00 Ondansetron HCl (Zofran Inj) 4 mg Q6H PRN IV NAUSEA AND/OR VOMITING Last administered on 08/09/17 21:00; Admin Dose 4 MG; Start 08/04/17 at 11:30 Acetaminophen (Tylenol Tab) 650 mg Q6H PRN PO PAIN LEVEL 1-3 OR FEVER Last administered on 08/09/17 12:41; Admin Dose 650 MG; Start 08/04/17 at 11:30 Famotidine (Pepcid) 20 mg Q12 PO Last administered on 08/09/17 21:00; Admin Dose 20 MG; Start 08/04/17 at 21:00 Diagnostic Test (Pha) (Accu-Chek) 1 ea 02 XX ; Start 08/05/17 at 02:00 Diagnostic Test (Pha) (Accu-Chek) 1 ea 02 XX ; Start 08/05/17 at 02:00 IV Flush 10 ml 10 ml PRN PRN IV IV PROTOCOL; Start 08/04/17 at 17:30 Sodium Chloride (NS) 1,000 ml @ 50 mls/hr Q20H IV Last administered on 05:30; Admin Dose 50 MLS/HR; Start 08/05/17 at 11:00 Diphenhydramine HCl (Benadryl) 25 mg Q4H PRN IV ALLERGIC RXN; Start 08/05/17 at 20:00 Methylprednisolone Sodium Succinate (Solu-Medrol) 60 mg Q4H PRN IV ALLERGIC RXN ; Start 08/05/17 at 20:00 Filgrastim (Neupogen) 480 mcg DAILY@17 SC ; Start 08/09/17 at 17:00; Stop at 17:01 DOMINIQUE LAMBERT M.D. Aug 09, 2017 22:48
[2017-08-10] MEDS: SOD CHLORIDE 0.9% 1,000 ML IV SCH (01:00)
[2017-08-10] MEDS: ACCU-CHEK XX SCH ×2 (01:09)
[2017-08-10 02:28] VITALS: BP 148/75; RESP 18
[2017-08-10 05:18] LABS: BASOPHILS % 0.3 % (0.0-2.0); EOSINOPHILS # 0.1 10^3/ul (0.0-0.5); EOSINOPHILS % 1.4 % (0.0-7.0); HEMOGLOBIN 11.1 g/dl (14.0-18.0); LYMPHOCYTES # 0.9 10^3/ul (0.8-2.9); LYMPHOCYTES % 12.2 % (15.0-51.0); MEAN CORPUSCULAR HEMOGLOBIN 28.7 pg (29.0-33.0); MEAN CORPUSCULAR HGB CONC 32.6 g/dl (32.0-37.0); MEAN CORPUSCULAR VOLUME 87.9 fl (82.0-101.0); MEAN PLATELET VOLUME 9.9 fl (7.4-10.4); MONOCYTE # 0.2 10^3/ul (0.3-0.9); MONOCYTES % 2.4 % (0.0-11.0); PLATELET COUNT 284 10^3/UL (140-415); RED BLOOD COUNT 3.87 10^6/ul (4.70-6.10); RED CELL DISTRIBUTION WIDTH 12.1 % (11.5-14.5); WHITE BLOOD COUNT 7.2 10^3/ul (4.8-10.8)
[2017-08-10 05:40] LABS: CALCIUM 9.2 mg/dl (8.4-10.2); CREATININE 0.78 mg/dl (0.61-1.24); POTASSIUM 4.3 mmol/L (3.5-5.1)
[2017-08-10] MEDS: INSULIN ASPART [NOVOLOG] 3 ML PEN SC SCH ×3 (07:50→17:55)
[2017-08-10 08:00] VITALS: BP 130/82; RESP 18
[2017-08-10] MEDS: metFORMIN 500 MG TAB PO SCH ×2 (08:48→17:56)
[2017-08-10] MEDS: ASPIRIN (EC) 81 MG TAB PO SCH (08:49)
[2017-08-10] MEDS: FAMOTIDINE 20 MG TAB PO SCH (08:49)
[2017-08-10] MEDS: LISINOPRIL 20 MG TAB PO SCH (09:43)
[2017-08-10 12:44] LABS: ADD UMIC NO; UR ASCORBIC ACID NEGATIVE (NEGATIVE); UR BILIRUBIN (Dip) NEGATIVE (NEGATIVE); UR BLOOD (Dip) NEGATIVE (NEGATIVE); UR CLARITY CLEAR (CLEAR); UR COLOR YELLOW (YELLOW); UR GLUCOSE (Dip) NEGATIVE (NEGATIVE); UR KETONES (Dip) TRACE mg/dL (NEGATIVE); UR LEUKOCYTE ESTERASE (Dip) NEGATIVE Leu/ul (NEGATIVE); UR NITRITE (Dip) NEGATIVE (NEGATIVE); UR SPECIFIC GRAVITY (Dip) 1.014 (1.003-1.030); UR TOTAL PROTEIN (Dip) NEGATIVE (NEGATIVE); UR UROBILINOGEN (Dip) 1+ mg/dL (NEGATIVE)
[2017-08-10 14:00] VITALS: BP 130/89; RESP 18
--- NOTE | 2017-08-10 14:32 | PDOCDIS ---
Discharge Instructions DIAGNOSIS Discharge Diagnosis 1. Newly diagnosed undifferentiated pleomorphic sarcoma.. 2. Type 2 diabetes. c of note HbA1c: 6.0 3. hypertension. HOME CARE INSTRUCTIONS: Special Diet: carbohydrate controlled FOLLOW UP/APPOINTMENTS Follow-up Plan 1. Follow up with Dr. Mara Joe in one week STELLA DAVE Aug 10, 2017 14:32
[2017-08-10] MEDS: FILGRASTIM 480 MCG INJ SC SCH (17:59)
--- NOTE | 2017-08-10 19:54 | PN ---
Date/Time of Note Date/Time of Note LATE ENTRY DATE: 07/1217 Assessment/Plan VTE Prophylaxis VTE Prophylaxis Intervention: SCD's Lines/Catheters IV Catheter Type (from Nrs): PICC Line Urinary Cath still in place: No Assessment/Plan Chief Complaint/Hosp Course Assessment and plan 1. Newly diagnosed undifferentiated pleomorphic sarcoma.. continue on adriamycin/ifosfamide/mesna per oncologist recomendations. 2. Type 2 diabetes. continue on metformin. of note HbA1c: 6.0 Diabetes and hypertension. Stable at present. Continue antihypertensives. Adjust as needed. DVT prophylaxis: Early intubation Disposition plan: Continue chemotherapy per oncologist. less reported diarrhea. d/c when medically stable and cleared by consultants Discussed plan of care with Dr. Baez Problems: Subjective 24 Hr Interval Summary Free Text/Dictation no s/s of distress. 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, nl mental status, nl speech Skin: No rash or lesions Results Result Diagram: 08/10/17 0432 08/10/17 0432 Results 24 hrs Laboratory Tests Test 08/09/17 20:53 08/10/17 04:32 08/10/17 08:45 08/10/17 09:05 Bedside Glucose 86 95 White Blood Count 7.2 Red Blood Count 3.87 L Hemoglobin 11.1 L Hematocrit 34.0 L Mean Corpuscular Volume 87.9 Mean Corpuscular Hemoglobin 28.7 L Mean Corpuscular Hemoglobin Concent 32.6 Red Cell Distribution Width 12.1 Platelet Count 284 Mean Platelet Volume 9.9 Neutrophils % 83.0 H Lymphocytes % 12.2 L Monocytes % 2.4 Eosinophils % 1.4 Basophils % 0.3 Nucleated Red Blood Cells % 0.0 Neutrophils # (Manual) 6.0 Lymphocytes # 0.9 Monocytes # 0.2 L Eosinophils # 0.1 Basophils # 0.0 Nucleated Red Blood Cells # 0.0 Sodium Level 138 Potassium Level 4.3 Chloride Level 105 Carbon Dioxide Level 24 Anion Gap 13 Blood Urea Nitrogen 18 Creatinine 0.78 Glucose Level 88 Calcium Level 9.2 Urine Color YELLOW Urine Clarity CLEAR Urine pH 7.0 Urine Specific [place] 1.014 Urine Ketones TRACE A Urine Nitrite NEGATIVE Urine Bilirubin NEGATIVE Urine Urobilinogen 1+ H Urine Leukocyte Esterase NEGATIVE Urine Hemoglobin NEGATIVE Urine Glucose NEGATIVE Urine Total Protein NEGATIVE Test 08/10/17 12:59 08/10/17 17:55 Bedside Glucose 130 104 STELLA DAVE Aug 10, 2017 19:54
--- NOTE | 2017-08-10 19:55 | PN ---
Date/Time of Note Date/Time of Note DATE: 08/10/17 TIME: 19:54 Assessment/Plan VTE Prophylaxis VTE Prophylaxis Intervention: SCD's Lines/Catheters IV [facility]from [facility] PICC Line Urinary Cath still in place: No Assessment/Plan Chief Complaint/Hosp Course Assessment and plan 1. Newly diagnosed undifferentiated pleomorphic sarcoma.. continue on adriamycin/ifosfamide/mesna per oncologist recomendations. 2. Type 2 diabetes. continue on metformin. of note HbA1c: 6.0 Diabetes and hypertension. Stable at present. Continue antihypertensives. Adjust as needed. DVT prophylaxis: Early intubation Disposition plan: Last day of chemotherapy today. Follow up on cbc. d/c when cleared by consultants Discussed plan of care with Dr. Baez Problems: Subjective 24 Hr Interval Summary Free Text/Dictation comfortable at present. 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, nl mental status, nl speech Skin: No rash or lesions Results Result Diagram: 08/10/17 0432 08/10/17 0432 Results 24 hrs Laboratory Tests Test 08/09/17 20:53 08/10/17 04:32 08/10/17 08:45 08/10/17 09:05 Bedside Glucose 86 95 White Blood Count 7.2 Red Blood Count 3.87 L Hemoglobin 11.1 L Hematocrit 34.0 L Mean Corpuscular Volume 87.9 Mean Corpuscular Hemoglobin 28.7 L Mean Corpuscular Hemoglobin Concent 32.6 Red Cell Distribution Width 12.1 Platelet Count 284 Mean Platelet Volume 9.9 Neutrophils % 83.0 H Lymphocytes % 12.2 L Monocytes % 2.4 Eosinophils % 1.4 Basophils % 0.3 Nucleated Red Blood Cells % 0.0 Neutrophils # (Manual) 6.0 Lymphocytes # 0.9 Monocytes # 0.2 L Eosinophils # 0.1 Basophils # 0.0 Nucleated Red Blood Cells # 0.0 Sodium Level 138 Potassium Level 4.3 Chloride Level 105 Carbon Dioxide Level 24 Anion Gap 13 Blood Urea Nitrogen 18 Creatinine 0.78 Glucose Level 88 Calcium Level 9.2 Urine Color YELLOW Urine Clarity CLEAR Urine pH 7.0 Urine Specific [place] 1.014 Urine Ketones TRACE A Urine Nitrite NEGATIVE Urine Bilirubin NEGATIVE Urine Urobilinogen 1+ H Urine Leukocyte Esterase NEGATIVE Urine Hemoglobin NEGATIVE Urine Glucose NEGATIVE Urine Total Protein NEGATIVE Test 08/10/17 12:59 08/10/17 17:55 Bedside Glucose 130 104 STELLA DAVE Aug 10, 2017 19:55
--- NOTE | 2017-08-10 22:20 | CONS ---
Date/Time of Note Date/Time of Note DATE: 08/10/17 TIME: 22:19 Assessment/Plan Assessment/Plan Chief Complaint/Hosp Course #poorly differentiated sarcoma -now completed chemotherpy -pt to continue with neoadjuvant chemotherapy with Adriamycin/ Ifosfamide/ Mesna. plan for 3 cycles total then evaluate for surgical resection -pt has been seen by [facility] surgical oncologist and [facility] sarcoma specialist. Per their recs we will continue with 3 cycles of AIM then proceed to XRT with or without ifex 1000mg/m2 D1-5 and D29-33. -after neoadjuvant chemotherapy and chemo/ rads, will see if patient is surgically resectable. #Diabetes -continue DM management per primary team -pt on metformin #HTN -BP currently under good control -continue current BP meds per primary #Dispo -upcon discharge, pt will need home health to [facility] x 5 days along with q week CBC checks and PICC line care Problems: Consultation Date/Type/Reason Admit Date/Time Aug 04, 2017 at 09:50 Initial Consult Date 08/04/17 Type of Consultation: Oncology Reason for Consultation pelomorphic sarcoma Referring Provider: EMA WHALEY NP 24 HR Interval Summary Free Text/Dictation ok to be discharged today Exam/Review of Systems Vital Signs Vitals Vital Signs Date Time Temp Pulse Resp B/P Pulse Ox O2 Delivery O2 Flow Rate FiO2 08/10/17 14:00 98.8 87 18 130/89 98 08/08/17 18:25 Room Air Intake and Output 08/09/17 08/09/17 08/10/17 15:00 23:00 07:00 Intake Total 824 ml 1300 ml Output Total 450 ml Balance 824 ml 850 ml Exam Constitutional: alert, oriented Psych: no complaints Head: normocephalic Eyes: nl conjunctiva ENMT: nl external ears & nose Neck: non-tender, supple Respiratory: clear to auscultation, normal air movement Cardiovascular: nl pulses, regular rate and rhythm Gastrointestinal: soft Musculoskeletal: nl extremities to inspection, nl gait and stance Extremities: normal pulses Neurological: MENTAL HEALTH CLINICIAN II-XII intact Results Result Diagram: 08/10/17 0432 08/10/17 0432 Results 24 hrs Laboratory Tests Test 08/10/17 04:32 08/10/17 08:45 08/10/17 09:05 08/10/17 12:59 White Blood Count 7.2 Red Blood Count 3.87 L Hemoglobin 11.1 L Hematocrit 34.0 L Mean Corpuscular Volume 87.9 Mean Corpuscular Hemoglobin 28.7 L Mean Corpuscular Hemoglobin Concent 32.6 Red Cell Distribution Width 12.1 Platelet Count 284 Mean Platelet Volume 9.9 Neutrophils % 83.0 H Lymphocytes % 12.2 L Monocytes % 2.4 Eosinophils % 1.4 Basophils % 0.3 Nucleated Red Blood Cells % 0.0 Neutrophils # (Manual) 6.0 Lymphocytes # 0.9 Monocytes # 0.2 L Eosinophils # 0.1 Basophils # 0.0 Nucleated Red Blood Cells # 0.0 Sodium Level 138 Potassium Level 4.3 Chloride Level 105 Carbon Dioxide Level 24 Anion Gap 13 Blood Urea Nitrogen 18 Creatinine 0.78 Glucose Level 88 Calcium Level 9.2 Bedside Glucose 95 130 Urine Color YELLOW Urine Clarity CLEAR Urine pH 7.0 Urine Specific [place] 1.014 Urine Ketones TRACE A Urine Nitrite NEGATIVE Urine Bilirubin NEGATIVE Urine Urobilinogen 1+ H Urine Leukocyte Esterase NEGATIVE Urine Hemoglobin NEGATIVE Urine Glucose NEGATIVE Urine Total Protein NEGATIVE Test 08/10/17 17:55 Bedside Glucose 104 DOMINIQUE LAMBERT M.D. Aug 10, 2017 22:20
== END 2017-08-10 19:11 | disposition home health service (06) | DRG 847 ==
LOC: MS1 09:50
PROVIDERS: ADMIT Internal Medicine; ATTEND Internal Medicine
PROC: 02HV33Z Insertion of Infusion Device into Superior Vena Cava, Percutaneous Approach (ICD-10-PCS; 2017-08-04)
PROC: 3E04305 Introduction of Other Antineoplastic into Central Vein, Percutaneous Approach (ICD-10-PCS; principal; 2017-08-05)
DX: Z51.11 Encounter for antineoplastic chemotherapy (principal); C49.4 Malignant neoplasm of connective and soft tissue of abdomen; E11.9 Type 2 diabetes mellitus without complications; I10 Essential (primary) hypertension; Z87.891 Personal history of nicotine dependence; Z79.84 Long term (current) use of oral hypoglycemic drugs
CPT/HCPCS: 36569; 71010; 76937; 80048; 80053; 80061; 81001; 81003; 82728; 82962; 83036; 83540; 83735; 84100; 84439; 84443; 85025; 85610; 85730; 87086; 93306; J9209; J1100; J1200; J1815; J2405; J7030; J7040; J7050; J9000; J9208

== ENCOUNTER 2017-08-29 09:22 | Inpatient (IN) | END 2017-09-02 19:37 | disposition home health service (06) | DRG 848 | DX: Z51.11 Encounter for antineoplastic chemotherapy (principal); C76.2 Malignant neoplasm of abdomen; I10 Essential (primary) hypertension; E11.9 Type 2 diabetes mellitus without complications; D72.829 Elevated white blood cell count, unspecified; E78.00 Pure hypercholesterolemia, unspecified ==

== ENCOUNTER 2017-10-12 09:54 | Inpatient (IN) | payer OTHER ==
[~2017-10-12] VITALS: Ht 167.6 cm; Wt 68.4 kg
[~2017-10-12 09:54] MED LIST: ASPI-664 PO; LISI20TA11 PO
[2017-10-12 11:03] VITALS: BP 132/82; PULSE 96; RESP 18; Ht 167.6 cm; Wt 68.4 kg
--- NOTE | 2017-10-12 11:55 | HP ---
Date/Time of Note Date/Time of Note DATE: 10/12/17 TIME: 11:49 Assessment/Plan VTE Prophylaxis VTE Prophylaxis Intervention: ambulation Lines/Catheters IV Catheter Type (from [facility]): PICC Line Central line still needed: Yes Assessment/Plan Chief Complaint/Hosp Course 1.Undifferentiated sarcoma of right lower abdomen, admitted for cycle 3 chemotherapy with Adriamycin/ Ifosfamide/ Mesna. -Chemotherapy per patient's oncologist -Eventual tumor resection at tertiary center once sized is reducible with chemotherapy. 2. Essential hypertension. Stable. -Resume home medications 3. History of diabetes-off treatment -Obtain A1c and treat accordingly. Prophylaxis ambulation/Pepcid Plan: Patient is admitted for chemotherapy. We will follow-up with oncology recommendations. Patient will be started on a diet. He will be also provided with adequate IV hydration. During his stay in the hospital, we will monitor patient for any signs of infections. CBC will be monitored daily. Rest of the management per oncology recommendations. Approximately 60 minutes was spent on this history and physical. Patient is seen in collaboration with Dr. Zayas. 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 Patient is now being readmitted for cycle 3 chemotherapy. The eventual plan is to have patient evaluated by sarcoma surgeon at [facility] for possible resection of the tumor once the size is decreased with neoadjuvant chemotherapy with 3 cycles. At my encounter with the patient, he denied any chest pain, shortness of breath , palpitation, nausea, vomiting, abdominal pain, dizziness, or other constitutional symptoms. There is no current labs to review. Vital signs within acceptable range. ROS A 12 point review of system was assessed and is negative other than what is mentioned in the HPI. PMH/Family/Social Past Medical History See HPI Past Surgical History See HPI Past Surgical Hx: no surgical history Social History Patient denied any history of alcohol, smoking or illicit drug use. However, in the medical record it states that he was a former smoker. Smoking Status: Former smoker Exam/Review of Systems Vital Signs Vitals Vital Signs Date Time Temp Pulse Resp B/P Pulse Ox O2 Delivery O2 Flow Rate FiO2 10/12/17 11:03 97.8 96 18 132/82 96 Room Air Exam Exam General: Well developed,adequately built Stateless male, not in any acute distress . HEENT: Normocephalic, Atraumatic, No laceration or hematoma; Eyes: PEERL, Conjunctiva clear, Anicteric sclera Neck: Supple without any lymphadenopathy, nontender, no JVD, no carotid bruits, trachea midline, no thyromegaly Cardiac: S1, S2 auscultated, regular rhythm and rate, no mumurs or gallop Pulmonary: Normal respiratory effort. Chest clear to auscultation bilaterally, no adventitious breath sounds GI: Abdomen normal to inspection. Soft, non tender, non- distended, no masses, no rebound tenderness or guarding. Bowel sounds active on all four quadrants Genitourinary: Deferred Extremities: No cyanosis, clubbing, or edema. Pulses [2+] bilaterally. Full ROM on all four extremities. No focal weakness appreciated. Neurologic: Alert to person, place, time, and situation. Affect appropriate, intact sensation. Skin: Clean,dry, and intact. No ecchymosis, no rashes, or lesions RODRIGO LOWERY NP Oct 12, 2017 11:55
[2017-10-12] MEDS ORDERED: NACL 0.9% 3 ML SYG IV SCH (12:00)
[2017-10-12] MEDS ORDERED: ACETAMINOPHEN 650 MG SUPP PR PRN (12:00)
[2017-10-12] MEDS ORDERED: ACETAMINOPHEN 325 MG TAB PO PRN (12:00)
[2017-10-12] MEDS ORDERED: ONDANSETRON 4 MG INJ IV PRN (12:00)
[2017-10-12] MEDS ORDERED: DOCUSATE SODIUM 100 MG CAP PO PRN (12:00)
[2017-10-12] MEDS ORDERED: morphine 2 MG INJ IV PRN (12:00)
[2017-10-12 13:24] LABS: BASOPHIL # 0.1 10^3/ul (0.0-0.1); BASOPHILS % 0.7 % (0.0-2.0); EOSINOPHILS # 0.5 10^3/ul (0.0-0.5); EOSINOPHILS % 6.4 % (0.0-7.0); HEMATOCRIT 28.9 % (42.0-52.0); HEMOGLOBIN 9.4 g/dl (14.0-18.0); LYMPHOCYTES # 0.9 10^3/ul (0.8-2.9); LYMPHOCYTES % 12.4 % (15.0-51.0); MEAN CORPUSCULAR HEMOGLOBIN 28.9 pg (29.0-33.0); MEAN CORPUSCULAR HGB CONC 32.5 g/dl (32.0-37.0); MEAN CORPUSCULAR VOLUME 88.9 fl (82.0-101.0); MEAN PLATELET VOLUME 8.3 fl (7.4-10.4); MONOCYTE # 0.6 10^3/ul (0.3-0.9); MONOCYTES % 8.7 % (0.0-11.0); NEUTROPHIL # 4.9 10^3/ul (1.6-7.5); PLATELET COUNT 250 10^3/UL (140-415); RED BLOOD COUNT 3.25 10^6/ul (4.70-6.10); RED CELL DISTRIBUTION WIDTH 14.4 % (11.5-14.5)
[2017-10-12 13:55] LABS: CALCIUM 9.3 mg/dl (8.4-10.2); CREATININE 0.86 mg/dl (0.61-1.24); POTASSIUM 3.9 mmol/L (3.5-5.1)
[2017-10-12] MEDS: SOD CHLORIDE 0.9% 1,000 ML IV SCH (13:58)
[2017-10-12 14:55] VITALS: BP 139/83; RESP 20
[2017-10-12 15:14] LABS: ADD UMIC NO; UR ASCORBIC ACID NEGATIVE (NEGATIVE); UR BILIRUBIN (Dip) NEGATIVE (NEGATIVE); UR BLOOD (Dip) NEGATIVE (NEGATIVE); UR CLARITY CLEAR (CLEAR); UR COLOR YELLOW (YELLOW); UR GLUCOSE (Dip) NEGATIVE (NEGATIVE); UR KETONES (Dip) NEGATIVE (NEGATIVE); UR LEUKOCYTE ESTERASE (Dip) NEGATIVE Leu/ul (NEGATIVE); UR NITRITE (Dip) NEGATIVE (NEGATIVE); UR SPECIFIC GRAVITY (Dip) 1.011 (1.003-1.030); UR TOTAL PROTEIN (Dip) NEGATIVE (NEGATIVE); UR UROBILINOGEN (Dip) NEGATIVE (NEGATIVE)
[2017-10-12] MEDS ORDERED: INFLUENZA VIRUS VACCINE 0.5 ML SYG IM* ONE (16:00)
--- NOTE | 2017-10-12 16:40 | CONS ---
Date/Time of Note Date/Time of Note DATE: 10/12/17 TIME: 16:37 Assessment/Plan Assessment/Plan Chief Complaint/Hosp Course #poorly differentiated sarcoma -pt to start neoadjuvant chemotherapy with Adriamycin/ Ifosfamide/ Mesna. plan for 3 cycles total then evaluate for surgical resection -day 1 of 3 to start as soon as medications are ready -will need to check daily UA to evaluate for hemorrhagic cystitis. baseline UA done -pt will need a total of 3 cycles 3 weeks apart -pt has been seen by [facility] surgical oncologist and [facility] sarcoma specialist. Per their recs we will continue with 3 cycles of AIM then proceed to XRT with or without ifex 1000mg/m2 D1-5 and D29-33. -after neoadjuvant chemotherapy and chemo/ rads, will see if patient is surgically resectable. #Diabetes -continue DM management per primary team -pt on metformin #HTN -BP currently under good control -continue current BP meds per primary #Dispo -upcon discharge, [facility] along with q week CBC checks and PICC line care Problems: Consultation Date/Type/Reason Admit Date/Time Oct 12, 2017 at 10:18 Date of Consultation: Oct 12, 2017 Type of Consultation: Oncology Reason for Consultation sarcoma Referring Provider: EMA WHALEY DIETARY SERVER Hx of Present Illness 62-year-old male who states that he noticed a right lower abdominal mass starting in November 2016. He denies any pain and states that it has not been growing since that time or changing. Patient had an ultrasound performed 2016, which stated that there was a mass corresponding to the area palpable of concern measuring greater than 6 cm.. He underwent a CT abdomen and pelvis with and without contrast on 12/23/2016, which demonstrated a large heterogeneously enhancing soft tissue mass in the right lower quadrant extending towards the right inguinal canal measuring up to 6.9 x 6.3 x 5.9 cm and had a suspicion for malignancy, suggest further evaluation with tissue sampling. Patient underwent a biopsy which revealed an "undifferentiated pleomorphic sarcoma". Pt was evaluated by a sarcoma surgeon at [facility] who stated he could resect the tumor if we were able to decrease the tumor size with neoadjuvant chemotherapy. He is now being admitted for cycle 3 Adriamycin/ Ifosfamide/Mesna. Constitutional: no complaints Eyes: no complaints ENT: no complaints Respiratory: no complaints Cardiovascular: no complaints Gastrointestinal: no complaints Genitourinary: no complaints Musculoskeletal: no complaints Skin: no complaints Endocrine: no complaints Lymphatic: no complaints Psychological: no complaints Past Medical History diabetes, high cholesterol, hypertension Past Surgical History Past Surgical Hx: no surgical history Family History Significant Family History: no pertinent family hx Social History Smoking Status: Former smoker Exam/Review of Systems Vital Signs Vitals Vital Signs Date Time Temp Pulse Resp B/P Pulse Ox O2 Delivery O2 Flow Rate FiO2 10/12/17 14:55 98.4 75 20 139/83 97 10/12/17 11:03 Room Air Exam Constitutional: alert, oriented Psych: no complaints Head: normocephalic Eyes: nl conjunctiva ENMT: nl external ears & nose, nl lips & teeth Neck: non-tender, supple Respiratory: clear to auscultation, normal air movement Gastrointestinal: other (decrease in abdominal mass) Musculoskeletal: nl extremities to inspection, nl gait and stance Extremities: normal pulses Results Result Diagram: 10/12/17 1245 10/12/17 1245 Results 24 hrs Laboratory Tests Test 10/12/17 12:45 10/12/17 13:45 White Blood Count 7.0 Red Blood Count 3.25 L Hemoglobin 9.4 L Hematocrit 28.9 L Mean Corpuscular Volume 88.9 Mean Corpuscular Hemoglobin 28.9 L Mean Corpuscular Hemoglobin Concent 32.5 Red Cell Distribution Width 14.4 Platelet Count 250 # Mean Platelet Volume 8.3 Neutrophils % 70.0 Lymphocytes % 12.4 L Monocytes % 8.7 Eosinophils % 6.4 Basophils % 0.7 Nucleated Red Blood Cells % 0.0 Neutrophils # 4.9 Lymphocytes # 0.9 Monocytes # 0.6 Eosinophils # 0.5 Basophils # 0.1 Nucleated Red Blood Cells # 0.0 Sodium Level 142 Potassium Level 3.9 Chloride Level 103 Carbon Dioxide Level 28 Anion Gap 15 Blood Urea Nitrogen 11 Creatinine 0.86 Glucose Level 92 Calcium Level 9.3 Urine Color YELLOW Urine Clarity CLEAR Urine pH 6.0 Urine Specific [place] 1.011 Urine Ketones NEGATIVE Urine Nitrite NEGATIVE Urine Bilirubin NEGATIVE Urine Urobilinogen NEGATIVE Urine Leukocyte Esterase NEGATIVE Urine Hemoglobin NEGATIVE Urine Glucose NEGATIVE Urine Total Protein NEGATIVE Medications Medications Current Medications Aspirin (Halfprin) 81 mg DAILY PO ; Start 10/13/17 at 09:00 Lisinopril 20 mg 20 mg DAILY PO ; Start 10/13/17 at 09:00 Sodium Chloride (NS) 1,000 ml @ 75 mls/hr [id number] IV Last administered on t 13:58; Admin Dose 75 MLS/HR; Start 10/12/17 at 11:57 Ondansetron HCl (Zofran Inj) 4 mg Q6H PRN IV NAUSEA AND/OR VOMITING; Start at 12:00 Acetaminophen (Tylenol Tab) 650 mg Q6H PRN PO PAIN LEVEL 1-3 OR FEVER; Start 10/12/17 at 12:00 Acetaminophen (Tylenol Supp) 650 mg Q6H PRN [place] PAIN LEVEL 1-3 OR FEVER; Start 10/12/17 at 12:00 Morphine Sulfate (morphine) 2 mg Q4H PRN IV SEVERE PAIN LEVEL 7-10; Start at 12:00 Docusate Sodium (Colace) 100 mg Q12H PRN PO CONSTIPATION; Start 10/12/17 at 12 :00 Diphenhydramine HCl (Benadryl) 25 mg Q4H PRN IV REACTION; Start 10/12/17 at 20 :00 Methylprednisolone Sodium Succinate (Solu-Medrol) 60 mg Q4H PRN IV REACTION; Start 10/12/17 at 20:00 Meperidine HCl 25 mg 25 mg Q12H PRN IV REACTION; Start 10/12/17 at 20:00 Doxorubicin HCl 45 mg/Sodium Chloride 122.5 ml @ 122.5 mls/ hr Q24H IV ; Start 10/12/17 at 17:30; Stop 10/14/17 at 18:29 Ifosfamide 4.425 gm/Sodium Chloride 250 ml @ 80 mls/hr Q24H IV ; Start at 19:00; Stop 10/14/17 at 22:08 Mesna 1325 mg/ Sodium Chloride 113.25 ml @ 226.5 mls/hr Q24H IV ; Start at 18:45; Stop 10/14/17 at 19:14 Mesna 1325 mg/ Sodium Chloride 63.25 ml @ 126.5 mls/ hr Q24H IV ; Start at 02:00; Stop 10/15/17 at 02:29 Mesna 1325 mg/ Sodium Chloride 63.25 ml @ 126.5 mls/ hr Q24H IV ; Start at 06:00; Stop 10/15/17 at 06:29 Ondansetron HCl/ Dexamethasone/ Sodium Chloride (Zofran Inj/ Decadron/NS) 59 ml @ 118 mls/hr Q24H IVPB ; Start 10/12/17 at 17:15; Stop 10/14/17 at 17:44 Famotidine (Pepcid Iv) 20 mg Q12H IV ; Start 10/12/17 at 17:00 DOMINIQUE LAMBERT M.D. Oct 12, 2017 16:40
[2017-10-12] MEDS: ONDANSETRON INJ 16 MG, DEXAMETHASONE 10 MG/ML 10 MG in SOD CHLORIDE 0.9% 50 ML IVPB SCH (16:46)
[2017-10-12] MEDS: FAMOTIDINE 20 MG INJ IV SCH (16:50)
[2017-10-12] MEDS: DOXORUBICIN IV SCH (17:36)
[2017-10-12] MEDS: SOD CHLORIDE 0.9% IV SCH ×3 (17:36→21:53)
[2017-10-12] MEDS ORDERED: DIPHENHYDRAMINE 50 MG INJ IV PRN (20:00)
[2017-10-12] MEDS ORDERED: METHYLPREDNISOLONE 125 MG INJ IV PRN (20:00)
[2017-10-12] MEDS ORDERED: MEPERIDINE 50 MG INJ IV PRN (20:00)
[2017-10-12 20:10] VITALS: BP 123/70; RESP 20
[2017-10-12] MEDS ORDERED: FAMOTIDINE 20 MG INJ IV SCH (21:00)
[2017-10-12] MEDS: MESNA IV SCH (21:03)
[2017-10-12] MEDS: IFOSFAMIDE IV SCH (21:53)
[2017-10-13 02:35] VITALS: BP 111/66; RESP 20
[2017-10-13] MEDS: SOD CHLORIDE 0.9% 1,000 ML IV SCH ×2 (03:43→15:52)
[2017-10-13 05:18] LABS: ABNORMAL IP MESSAGE 1; BASOPHILS % 0.3 % (0.0-2.0); HEMATOCRIT 29.1 % (42.0-52.0); HEMOGLOBIN 9.4 g/dl (14.0-18.0); LYMPHOCYTES # 0.6 10^3/ul (0.8-2.9); LYMPHOCYTES % 7.3 % (15.0-51.0); MEAN CORPUSCULAR HEMOGLOBIN 28.7 pg (29.0-33.0); MEAN CORPUSCULAR HGB CONC 32.3 g/dl (32.0-37.0); MEAN PLATELET VOLUME 8.8 fl (7.4-10.4); MONOCYTE # 0.2 10^3/ul (0.3-0.9); MONOCYTES % 1.9 % (0.0-11.0); NEUTROPHIL # 7.1 10^3/ul (1.6-7.5); NEUTROPHILS % 89.1 % (39.0-77.0); PLATELET COUNT 306 10^3/UL (140-415); POSITIVE DIFF @See below; RED BLOOD COUNT 3.27 10^6/ul (4.70-6.10); RED CELL DISTRIBUTION WIDTH 13.8 % (11.5-14.5); WHITE BLOOD COUNT 7.9 10^3/ul (4.8-10.8)
[2017-10-13] MEDS: FAMOTIDINE 20 MG INJ IV SCH ×2 (05:35→17:08)
[2017-10-13] MEDS: SOD CHLORIDE 0.9% IV SCH ×5 (05:35→21:55)
[2017-10-13] MEDS: MESNA IV SCH ×3 (05:35→20:57)
[2017-10-13 05:45] LABS: ALBUMIN 3.8 g/dl (3.3-4.9); ALBUMIN/GLOBULIN RATIO 0.9; BILIRUBIN,INDIRECT 0.3 mg/dl (0-1.1); BILIRUBIN,TOTAL 0.3 mg/dl (0.2-1.3); CALCIUM 9.3 mg/dl (8.4-10.2); CREATININE 0.82 mg/dl (0.61-1.24); MAGNESIUM 1.9 mg/dl (1.7-2.5); PHOSPHORUS 3.7 mg/dl (2.5-4.9); POTASSIUM 4.2 mmol/L (3.5-5.1)
[2017-10-13 08:09] VITALS: BP 121/77; RESP 18
--- NOTE | 2017-10-13 08:49 | CONS ---
Date/Time of Note Date/Time of Note DATE: 10/13/17 TIME: 08:48 Assessment/Plan Assessment/Plan Chief Complaint/Hosp Course #poorly differentiated sarcoma -started neoadjuvant chemotherapy with Adriamycin/ Ifosfamide/ Mesna. today is cycle day 2 -plan for 3 cycles total then evaluate for surgical resection -will need to check daily UA to evaluate for hemorrhagic cystitis. baseline UA done -pt will need a total of 3 cycles 3 weeks apart -pt has been seen by [facility] surgical oncologist and [facility] sarcoma specialist. Per their recs we will continue with 3 cycles of AIM then proceed to XRT with or without ifex 1000mg/m2 D1-5 and D29-33. -after neoadjuvant chemotherapy and chemo/ rads, will see if patient is surgically resectable. #Mucositis -BAX solution written for #Diabetes -continue DM management per primary team -pt on metformin #HTN -BP currently under good control -continue current BP meds per primary #Dispo -upcon discharge, pt will need home health to [facility] x 5 days along with q week CBC checks and PICC line care Problems: Consultation Date/Type/Reason Admit Date/Time Oct 12, 2017 at 10:18 Initial Consult Date 10/12/17 Type of Consultation: Oncology Reason for Consultation pleomorphic sarcoma Referring Provider: EMA WHALEY NP 24 HR Interval Summary Free Text/Dictation pt c/o mucositis Exam/Review of Systems Vital Signs Vitals Vital Signs Date Time Temp Pulse Resp B/P Pulse Ox O2 Delivery O2 Flow Rate FiO2 10/13/17 08:09 98.2 100 18 121/77 97 10/12/17 11:03 Room Air Intake and Output 10/12/17 10/12/17 10/13/17 15:00 23:00 07:00 Intake Total 1594.75 ml 1593.25 ml Output Total 1000 ml 1800 ml Balance 594.75 ml -206.75 ml Exam Constitutional: alert, oriented Psych: no complaints Head: normocephalic Eyes: nl conjunctiva ENMT: nl external ears & nose Neck: non-tender, supple Respiratory: clear to auscultation, normal air movement Cardiovascular: regular rate and rhythm Gastrointestinal: other (mass felt in RLQ) Musculoskeletal: nl extremities to inspection, nl gait and stance Extremities: normal pulses Results Result Diagram: 10/13/17 0442 10/13/17 0442 Results 24 hrs Laboratory Tests Test 10/12/17 12:45 10/12/17 13:45 10/12/17 21:15 10/13/17 04:42 White Blood Count 7.0 7.9 Red Blood Count 3.25 L 3.27 L Hemoglobin 9.4 L 9.4 L Hematocrit 28.9 L 29.1 L Mean Corpuscular Volume 88.9 89.0 Mean Corpuscular Hemoglobin 28.9 L 28.7 L Mean Corpuscular Hemoglobin Concent 32.5 32.3 Red Cell Distribution Width 14.4 13.8 Platelet Count 250 # 306 # Mean Platelet Volume 8.3 8.8 Neutrophils % 70.0 89.1 H Lymphocytes % 12.4 L 7.3 L Monocytes % 8.7 1.9 Eosinophils % 6.4 0.0 Basophils % 0.7 0.3 Nucleated Red Blood Cells % 0.0 0.0 Neutrophils # 4.9 7.1 Lymphocytes # 0.9 0.6 L Monocytes # 0.6 0.2 L Eosinophils # 0.5 0.0 Basophils # 0.1 0.0 Nucleated Red Blood Cells # 0.0 0.0 Sodium Level 142 144 Potassium Level 3.9 4.2 Chloride Level 103 107 Carbon Dioxide Level 28 26 Anion Gap 15 15 Blood Urea Nitrogen 11 11 Creatinine 0.86 0.82 Glucose Level 92 110 Calcium Level 9.3 9.3 Urine Color YELLOW Urine Clarity CLEAR Urine pH 6.0 Urine Specific [place] 1.011 Urine Ketones NEGATIVE Urine Nitrite NEGATIVE Urine Bilirubin NEGATIVE Urine Urobilinogen NEGATIVE Urine Leukocyte Esterase NEGATIVE Urine Hemoglobin NEGATIVE Urine Glucose NEGATIVE Urine Total Protein NEGATIVE Bedside Glucose 197 Hemoglobin A1c 5.9 Phosphorus Level 3.7 Magnesium Level 1.9 Total Bilirubin 0.3 Direct Bilirubin 0.00 Indirect Bilirubin 0.3 Aspartate Amino Transf (AST/SGOT) 20 Alanine Aminotransferase (ALT/SGPT) 25 Alkaline Phosphatase 68 Total Protein 8.0 Albumin 3.8 Globulin 4.20 H Albumin/Globulin Ratio 0.90 Test 10/13/17 08:23 Bedside Glucose 125 Medications Medications Current Medications Aspirin (Halfprin) 81 mg DAILY PO ; Start 10/13/17 at 09:00 Lisinopril 20 mg 20 mg DAILY PO ; Start 10/13/17 at 09:00 Sodium Chloride (NS) 1,000 ml @ 75 mls/hr [id number] IV Last administered on 03:43; Admin Dose 75 MLS/HR; Start 10/12/17 at 11:57 Ondansetron HCl (Zofran Inj) 4 mg Q6H PRN IV NAUSEA AND/OR VOMITING; Start at 12:00 Acetaminophen (Tylenol Tab) 650 mg Q6H PRN PO PAIN LEVEL 1-3 OR FEVER; Start 10/12/17 at 12:00 Acetaminophen (Tylenol Supp) [address] PAIN LEVEL 1-3 OR FEVER; Start 10/12/17 at 12:00 Morphine Sulfate (morphine) 2 mg Q4H PRN IV SEVERE PAIN LEVEL 7-10; Start at 12:00 Docusate Sodium (Colace) 100 mg Q12H PRN PO CONSTIPATION; Start 10/12/17 at 12 :00 Diphenhydramine HCl (Benadryl) 25 mg Q4H PRN IV REACTION; Start 10/12/17 at 20 :00 Methylprednisolone Sodium Succinate (Solu-Medrol) 60 mg Q4H PRN IV REACTION; Start 10/12/17 at 20:00 Meperidine HCl 25 mg 25 mg Q12H PRN IV REACTION; Start 10/12/17 at 20:00 Doxorubicin HCl 45 mg/Sodium Chloride 122.5 ml @ 122.5 mls/ hr Q24H IV Last administered on 10/12/17 17:36; Admin Dose 122.5 MLS/HR; Start 10/12/17 at 17 :30; Stop 10/14/17 at 18:29 Ifosfamide 4.425 gm/Sodium Chloride 250 ml @ 80 mls/hr Q24H IV Last administered on 10/12/17 21:53; Admin Dose 80 MLS/HR; Start 10/12/17 at 19:00 ; Stop 10/14/17 at 22:08 Mesna 1325 mg/ Sodium Chloride 113.25 ml @ 226.5 mls/hr Q24H IV Last administered on 10/12/17 21:03; Admin Dose 226.5 MLS/HR; Start 10/12/17 at 18 :45; Stop 10/14/17 at 19:14 Mesna 1325 mg/ Sodium Chloride 63.25 ml @ 126.5 mls/ hr Q24H IV Last administered on 10/13/17 05:35; Admin Dose 126.5 MLS/HR; Start 10/13/17 at 02 :00; Stop 10/15/17 at 02:29 Mesna 1325 mg/ Sodium Chloride 63.25 ml @ 126.5 mls/ hr Q24H IV ; Start at 06:00; Stop 10/15/17 at 06:29 Ondansetron HCl/ Dexamethasone/ Sodium Chloride (Zofran Inj/ Decadron/NS) 59 ml @ 118 mls/hr Q24H IVPB Last administered on 10/12/17 16:46; Admin Dose 118 MLS/HR; Start 10/12/17 at 17:15; Stop 10/14/17 at 17:44 Famotidine (Pepcid Iv) 20 mg Q12H IV Last administered on 10/13/17 05:35; Admin Dose 20 MG; Start 10/12/17 at 17:00 Miscellaneous Medication (Bax Susp) 10 ml QID PO ; Start 10/13/17 at 09:00; Status DOMINIQUE SHELLEY M.D. Oct 13, 2017 08:49
[2017-10-13] MEDS: ASPIRIN (EC) 81 MG TAB PO SCH (09:11)
[2017-10-13] MEDS: LISINOPRIL 20 MG TAB PO SCH (09:12)
[2017-10-13 09:35] LABS: ADD UMIC NO; UR ASCORBIC ACID 40 mg/dL (NEGATIVE); UR BILIRUBIN (Dip) NEGATIVE (NEGATIVE); UR BLOOD (Dip) NEGATIVE (NEGATIVE); UR CLARITY CLEAR (CLEAR); UR COLOR YELLOW (YELLOW); UR GLUCOSE (Dip) 1+ mg/dL (NEGATIVE); UR KETONES (Dip) 2+ mg/dL (NEGATIVE); UR LEUKOCYTE ESTERASE (Dip) NEGATIVE Leu/ul (NEGATIVE); UR NITRITE (Dip) NEGATIVE (NEGATIVE); UR SPECIFIC GRAVITY (Dip) 1.015 (1.003-1.030); UR TOTAL PROTEIN (Dip) NEGATIVE (NEGATIVE); UR UROBILINOGEN (Dip) NEGATIVE (NEGATIVE)
--- NOTE | 2017-10-13 09:55 | PN ---
Date/Time of Note Date/Time of Note DATE: 10/13/17 TIME: 09:53 Assessment/Plan VTE Prophylaxis VTE Prophylaxis Intervention: ambulation Lines/Catheters IV Catheter Type (from Nrs): PICC Line Central line still needed: Yes Assessment/Plan Chief Complaint/Hosp Course 1.Undifferentiated sarcoma of right lower abdomen, admitted for cycle 3 chemotherapy with Adriamycin/ Ifosfamide/ Mesna. -Chemotherapy per patient's oncologist -Eventual tumor resection at tertiary center once sized is reducible with chemotherapy. 2. Essential hypertension. Stable. -Continue home medications 3. History of diabetes-off treatment. A1c checked and patient does not have diabetes. -Patient can resume regular diet. 4. Anemia of chronic illness. H&H stable. Will monitor. Prophylaxis ambulation/Pepcid Plan: Follow-up with oncology recommendations. Continue IV hydration. During his stay in the hospital, we will monitor patient for any signs of infections. CBC will be monitored daily. Patient is seen in collaboration with Dr. Zayas. Problems: Subjective 24 Hr Interval Summary Free Text/Dictation Patient has been started on chemotherapy. He is doing well. No fever or chills. No cough or shortness of breath. Exam/Review of Systems Vital Signs Vitals Vital Signs Date Time Temp Pulse Resp B/P Pulse Ox O2 Delivery O2 Flow Rate FiO2 10/13/17 08:09 98.2 100 18 121/77 97 10/12/17 11:03 Room Air Intake and Output 10/12/17 10/12/17 10/13/17 14:59 22:59 06:59 Intake Total 1594.75 ml 1593.25 ml Output Total 1000 ml 1800 ml Balance 594.75 ml -206.75 ml Exam General: Well developed,adequately built Turk[place] male, not in any acute distress . HEENT: Normocephalic, Atraumatic, No laceration or hematoma; Eyes: PEERL, Conjunctiva clear, Anicteric sclera Neck: Supple without any lymphadenopathy, nontender, no JVD, no carotid bruits, trachea midline, no thyromegaly Cardiac: S1, S2 auscultated, regular rhythm and rate, no mumurs or gallop Pulmonary: Normal respiratory effort. Chest clear to auscultation bilaterally, no adventitious breath sounds GI: Abdomen normal to inspection. Soft, non tender, non- distended, no masses, no rebound tenderness or guarding. Bowel sounds active on all four quadrants Genitourinary: Deferred Extremities: No cyanosis, clubbing, or edema. Pulses [2+] bilaterally. Full ROM on all four extremities. No focal weakness appreciated. Neurologic: Alert to person, place, time, and situation. Affect appropriate, intact sensation. Skin: Clean,dry, and intact. No ecchymosis, no rashes, or lesions Results Result Diagram: 10/13/1744110/13/17441 Results 24 hrs Laboratory Tests Test 10/12/17 12:45 10/12/17 13:45 10/12/17 21:15 10/13/17 04:42 White Blood Count 7.0 7.9 Red Blood Count 3.25 L 3.27 L Hemoglobin 9.4 L 9.4 L Hematocrit 28.9 L 29.1 L Mean Corpuscular Volume 88.9 89.0 Mean Corpuscular Hemoglobin 28.9 L 28.7 L Mean Corpuscular Hemoglobin Concent 32.5 32.3 Red Cell Distribution Width 14.4 13.8 Platelet Count 250 # 306 # Mean Platelet Volume 8.3 8.8 Neutrophils % 70.0 89.1 H Lymphocytes % 12.4 L 7.3 L Monocytes % 8.7 1.9 Eosinophils % 6.4 0.0 Basophils % 0.7 0.3 Nucleated Red Blood Cells % 0.0 0.0 Neutrophils # 4.9 7.1 Lymphocytes # 0.9 0.6 L Monocytes # 0.6 0.2 L Eosinophils # 0.5 0.0 Basophils # 0.1 0.0 Nucleated Red Blood Cells # 0.0 0.0 Sodium Level 142 144 Potassium Level 3.9 4.2 Chloride Level 103 107 Carbon Dioxide Level 28 26 Anion Gap 15 15 Blood Urea Nitrogen 11 11 Creatinine 0.86 0.82 Glucose Level 92 110 Calcium Level 9.3 9.3 Urine Color YELLOW Urine Clarity CLEAR Urine pH 6.0 Urine Specific [place] 1.011 Urine Ketones NEGATIVE Urine Nitrite NEGATIVE Urine Bilirubin NEGATIVE Urine Urobilinogen NEGATIVE Urine Leukocyte Esterase NEGATIVE Urine Hemoglobin NEGATIVE Urine Glucose NEGATIVE Urine Total Protein NEGATIVE Bedside Glucose 197 Hemoglobin A1c 5.9 Phosphorus Level 3.7 Magnesium Level 1.9 Total Bilirubin 0.3 Direct Bilirubin 0.00 Indirect Bilirubin 0.3 Aspartate Amino Transf (AST/SGOT) 20 Alanine Aminotransferase (ALT/SGPT) 25 Alkaline Phosphatase 68 Total Protein 8.0 Albumin 3.8 Globulin 4.20 H Albumin/Globulin Ratio 0.90 Test 10/13/17 08:00 10/13/17 08:23 Urine Color YELLOW Urine Clarity CLEAR Urine pH 5.0 Urine Specific [place] 1.015 Urine Ketones 2+ H Urine Nitrite NEGATIVE Urine Bilirubin NEGATIVE Urine Urobilinogen NEGATIVE Urine Leukocyte Esterase NEGATIVE Urine Hemoglobin NEGATIVE Urine Glucose 1+ H Urine Total Protein NEGATIVE Bedside Glucose 125 Medications Medications Current Medications Aspirin (Halfprin) 81 mg DAILY PO Last administered on 10/13/17 09:11; Admin Dose 81 MG; Start 10/13/17 at 09:00 Lisinopril 20 mg 20 mg DAILY PO Last administered on 10/13/17 09:12; Admin Dose 20 MG; Start 10/13/17 at 09:00 Sodium Chloride (NS) 1,000 ml @ 75 mls/hr [id number] IV Last administered on 03:43; Admin Dose 75 MLS/HR; Start 10/12/17 at 11:57 Ondansetron HCl (Zofran Inj) 4 mg Q6H PRN IV NAUSEA AND/OR VOMITING; Start at 12:00 Acetaminophen (Tylenol Tab) 650 mg Q6H PRN PO PAIN LEVEL 1-3 OR FEVER; Start 10/12/17 at 12:00 Acetaminophen (Tylenol Supp) 650 mg Q6H PRN [place] PAIN LEVEL 1-3 OR FEVER; Start 10/12/17 at 12:00 Morphine Sulfate (morphine) 2 mg Q4H PRN IV SEVERE PAIN LEVEL 7-10; Start at 12:00 Docusate Sodium (Colace) 100 mg Q12H PRN PO CONSTIPATION; Start 10/12/17 at 12 :00 Diphenhydramine HCl (Benadryl) 25 mg Q4H PRN IV REACTION; Start 10/12/17 at 20 :00 Methylprednisolone Sodium Succinate (Solu-Medrol) 60 mg Q4H PRN IV REACTION; Start 10/12/17 at 20:00 Meperidine HCl 25 mg 25 mg Q12H PRN IV REACTION; Start 10/12/17 at 20:00 Doxorubicin HCl 45 mg/Sodium Chloride 122.5 ml @ 122.5 mls/ hr Q24H IV Last administered on 10/12/17 17:36; Admin Dose 122.5 MLS/HR; Start 10/12/17 at 17 :30; Stop 10/14/17 at 18:29 Ifosfamide 4.425 gm/Sodium Chloride 250 ml @ 80 mls/hr Q24H IV Last administered on 10/12/17 21:53; Admin Dose 80 MLS/HR; Start 10/12/17 at 19:00 ; Stop 10/14/17 at 22:08 [place] 1325 mg/ Sodium Chloride 113.25 ml @ 226.5 mls/hr Q24H IV Last administered on 10/12/17 21:03; Admin Dose 226.5 MLS/HR; Start 10/12/17 at 18 :45; Stop 10/14/17 at 19:14 [place] 1325 mg/ Sodium Chloride 63.25 ml @ 126.5 mls/ hr Q24H IV Last administered on 10/13/17 05:35; Admin Dose 126.5 MLS/HR; Start 10/13/17 at 02 :00; Stop 10/15/17 at 02:29 [place] 1325 mg/ Sodium Chloride 63.25 ml @ 126.5 mls/ hr Q24H IV Last administered on 10/13/17 09:49; Admin Dose 126.5 MLS/HR; Start 10/13/17 at 06 :00; Stop 10/15/17 at 06:29 Ondansetron HCl/ Dexamethasone/ Sodium Chloride (Zofran Inj/ Decadron/NS) 59 ml @ 118 mls/hr Q24H IVPB Last administered on 10/12/17 16:46; Admin Dose 118 MLS/HR; Start 10/12/17 at 17:15; Stop 10/14/17 at 17:44 Famotidine (Pepcid Iv) 20 mg Q12H IV Last administered on 10/13/17 05:35; Admin Dose 20 MG; Start 10/12/17 at 17:00 Miscellaneous Medication (Bax Susp) 10 ml QID PO ; Start 10/13/17 at 13:00 RODRIGO LOWERY NP Oct 13, 2017 09:55
[2017-10-13] MEDS: DIPHENHYD/MYLANTA/LIDO (PO SYG) PO SCH ×3 (14:15→21:00)
[2017-10-13 15:35] VITALS: BP 128/72; RESP 18
[2017-10-13 17:00] VITALS: BP 132/77; PULSE 76; RESP 18
[2017-10-13] MEDS: ONDANSETRON INJ 16 MG, DEXAMETHASONE 10 MG/ML 10 MG in SOD CHLORIDE 0.9% 50 ML IVPB SCH (17:10)
[2017-10-13] MEDS: DOXORUBICIN IV SCH (18:28)
[2017-10-13 18:34] VITALS: BP 137/79; PULSE 84; RESP 18
[2017-10-13 19:57] VITALS: BP 139/81; RESP 20
[2017-10-13] MEDS: IFOSFAMIDE IV SCH (21:55)
[2017-10-14] VITALS (11 sets, daily range): BP systolic 98–147; BP diastolic 50–82; PULSE 71–79; RESP 16–20
[2017-10-14] MEDS: SOD CHLORIDE 0.9% 1,000 ML IV SCH ×2 (03:57→05:44)
[2017-10-14 05:35] LABS: ABNORMAL IP MESSAGE 1; BASOPHILS % 0.1 % (0.0-2.0); HEMATOCRIT 27.2 % (42.0-52.0); HEMOGLOBIN 8.8 g/dl (14.0-18.0); LYMPHOCYTES # 0.6 10^3/ul (0.8-2.9); LYMPHOCYTES % 7.2 % (15.0-51.0); MEAN CORPUSCULAR HEMOGLOBIN 28.9 pg (29.0-33.0); MEAN CORPUSCULAR HGB CONC 32.4 g/dl (32.0-37.0); MEAN CORPUSCULAR VOLUME 89.2 fl (82.0-101.0); MEAN PLATELET VOLUME 8.8 fl (7.4-10.4); MONOCYTE # 0.6 10^3/ul (0.3-0.9); MONOCYTES % 7.4 % (0.0-11.0); NEUTROPHIL # 6.9 10^3/ul (1.6-7.5); NEUTROPHILS % 84.4 % (39.0-77.0); PLATELET COUNT 275 10^3/UL (140-415); POSITIVE DIFF @See below; RED BLOOD COUNT 3.05 10^6/ul (4.70-6.10); RED CELL DISTRIBUTION WIDTH 14.2 % (11.5-14.5); WHITE BLOOD COUNT 8.2 10^3/ul (4.8-10.8)
[2017-10-14] MEDS: MESNA IV SCH ×3 (05:43→20:27)
[2017-10-14] MEDS: FAMOTIDINE 20 MG INJ IV SCH ×2 (05:43→16:50)
[2017-10-14] MEDS: SOD CHLORIDE 0.9% IV SCH ×5 (05:43→21:30)
[2017-10-14 06:14] LABS: CALCIUM 9.2 mg/dl (8.4-10.2); CREATININE 0.85 mg/dl (0.61-1.24); MAGNESIUM 2.2 mg/dl (1.7-2.5); POTASSIUM 4.2 mmol/L (3.5-5.1)
[2017-10-14 06:40] LABS: ADD UMIC NO; UR ASCORBIC ACID NEGATIVE (NEGATIVE); UR BILIRUBIN (Dip) NEGATIVE (NEGATIVE); UR BLOOD (Dip) NEGATIVE (NEGATIVE); UR CLARITY CLEAR (CLEAR); UR COLOR YELLOW (YELLOW); UR GLUCOSE (Dip) 3+ mg/dL (NEGATIVE); UR KETONES (Dip) TRACE mg/dL (NEGATIVE); UR LEUKOCYTE ESTERASE (Dip) NEGATIVE Leu/ul (NEGATIVE); UR NITRITE (Dip) NEGATIVE (NEGATIVE); UR TOTAL PROTEIN (Dip) NEGATIVE (NEGATIVE); UR UROBILINOGEN (Dip) NEGATIVE (NEGATIVE)
--- NOTE | 2017-10-14 07:35 | CONS ---
Date/Time of Note Date/Time of Note DATE: 10/14/17 TIME: 07:33 Assessment/Plan Assessment/Plan Chief Complaint/Hosp Course #poorly differentiated sarcoma -started neoadjuvant chemotherapy with Adriamycin/ Ifosfamide/ Mesna. today is cycle day 3 -plan for 3 cycles total then evaluate for surgical resection -will need to check daily UA to evaluate for hemorrhagic cystitis. baseline UA done -pt will need a total of 3 cycles 3 weeks apart -pt has been seen by [facility] surgical oncologist and [facility] sarcoma specialist. Per their recs we will continue with 3 cycles of AIM then proceed to XRT with or without ifex 1000mg/m2 D1-5 and D29-33. -after neoadjuvant chemotherapy and chemo/ rads, will see if patient is surgically resectable. #Mucositis -BAX solution written for #Diabetes -continue DM management per primary team -pt on metformin #HTN -BP currently under good control -continue current BP meds per primary #Dispo -upcon discharge, pt will need home health to [facility] x 5 days along with q week CBC checks and PICC line care Problems: Consultation Date/Type/Reason Admit Date/Time Oct 12, 2017 at 10:18 Initial Consult Date 10/12/17 Type of Consultation: Oncology Reason for Consultation pleomorphic sarcoma Referring Provider: EMA WHALEY SANDING MACHINE BUFFER 24 HR Interval Summary Free Text/Dictation pt tolerating chemotherapy well Exam/Review of Systems Vital Signs Vitals Vital Signs Date Time Temp Pulse Resp B/P Pulse Ox O2 Delivery O2 Flow Rate FiO2 10/14/17 02:07 97.9 83 20 110/59 97 10/12/17 11:03 Room Air Intake and Output 10/13/17 10/13/17 10/14/17 14:59 22:59 06:59 Intake Total 63.25 ml 2389.0 ml 813.25 ml Output Total 1350 ml 900 ml Balance 63.25 ml 1039.0 ml -86.75 ml Exam Constitutional: alert, oriented Psych: no complaints Head: normocephalic Eyes: nl conjunctiva ENMT: nl external ears & nose Neck: non-tender, supple Respiratory: clear to auscultation Cardiovascular: regular rate and rhythm Gastrointestinal: other (mass felt in right lower abdomen) Musculoskeletal: nl extremities to inspection Extremities: normal pulses Neurological: POLL CLERK II-XII intact Results Result Diagram: 10/14/17 0445 10/14/17 0445 Results 24 hrs Laboratory Tests Test 10/13/17 08:00 10/13/17 08:23 10/13/17 12:31 10/13/17 17:19 Urine Color YELLOW Urine Clarity CLEAR Urine pH 5.0 Urine Specific [place] 1.015 Urine Ketones 2+ H Urine Nitrite NEGATIVE Urine Bilirubin NEGATIVE Urine Urobilinogen NEGATIVE Urine Leukocyte Esterase NEGATIVE Urine Hemoglobin NEGATIVE Urine Glucose 1+ H Urine Total Protein NEGATIVE Bedside Glucose 125 205 107 Test 10/14/17 04:30 10/14/17 04:45 Urine Color YELLOW Urine Clarity CLEAR Urine pH 6.0 Urine Specific [place] 1.010 Urine Ketones TRACE A Urine Nitrite NEGATIVE Urine Bilirubin NEGATIVE Urine Urobilinogen NEGATIVE Urine Leukocyte Esterase NEGATIVE Urine Hemoglobin NEGATIVE Urine Glucose 3+ H Urine Total Protein NEGATIVE White Blood Count 8.2 Red Blood Count 3.05 L Hemoglobin 8.8 L Hematocrit 27.2 L Mean Corpuscular Volume 89.2 Mean Corpuscular Hemoglobin 28.9 L Mean Corpuscular Hemoglobin Concent 32.4 Red Cell Distribution Width 14.2 Platelet Count 275 Mean Platelet Volume 8.8 Neutrophils % 84.4 H Lymphocytes % 7.2 L Monocytes % 7.4 Eosinophils % 0.0 Basophils % 0.1 Nucleated Red Blood Cells % 0.0 Neutrophils # 6.9 Lymphocytes # 0.6 L Monocytes # 0.6 Eosinophils # 0.0 Basophils # 0.0 Nucleated Red Blood Cells # 0.0 Sodium Level 147 H Potassium Level 4.2 Chloride Level 110 Carbon Dioxide Level 26 Anion Gap 15 Blood Urea Nitrogen 11 Creatinine 0.85 Glucose Level 97 Calcium Level 9.2 Magnesium Level 2.2 Medications Medications Current Medications Aspirin (Halfprin) 81 mg DAILY PO Last administered on 10/13/17 09:11; Admin Dose 81 MG; Start 10/13/17 at 09:00 Lisinopril 20 mg 20 mg DAILY PO Last administered on 10/13/17 09:12; Admin Dose 20 MG; Start 10/13/17 at 09:00 Sodium Chloride (NS) 1,000 ml @ 75 mls/hr [id number] IV Last administered on 05:44; Admin Dose 75 MLS/HR; Start 10/12/17 at 11:57 Ondansetron HCl (Zofran Inj) 4 mg Q6H PRN IV NAUSEA AND/OR VOMITING; Start at 12:00 Acetaminophen (Tylenol Tab) 650 mg Q6H PRN PO PAIN LEVEL 1-3 OR FEVER; Start 10/12/17 at 12:00 Acetaminophen (Tylenol Supp) 650 mg Q6H PRN [place] PAIN LEVEL 1-3 OR FEVER; Start 10/12/17 at 12:00 Morphine Sulfate (morphine) 2 mg Q4H PRN IV SEVERE PAIN LEVEL 7-10; Start at 12:00 Docusate Sodium (Colace) 100 mg Q12H PRN PO CONSTIPATION; Start 10/12/17 at 12 :00 Diphenhydramine HCl (Benadryl) 25 mg Q4H PRN IV REACTION; Start 10/12/17 at 20 :00 Methylprednisolone Sodium Succinate (Solu-Medrol) 60 mg Q4H PRN IV REACTION; Start 10/12/17 at 20:00 Meperidine HCl 25 mg 25 mg Q12H PRN IV REACTION; Start 10/12/17 at 20:00 Doxorubicin HCl 45 mg/Sodium Chloride 122.5 ml @ 122.5 mls/ hr Q24H IV Last administered on 10/13/17 18:28; Admin Dose 122.5 MLS/HR; Start 10/12/17 at 17 :30; Stop 10/14/17 at 18:29 Ifosfamide 4.425 gm/Sodium Chloride 250 ml @ 80 mls/hr Q24H IV Last administered on 10/13/17 21:55; Admin Dose 80 MLS/HR; Start 10/12/17 at 19:00 ; Stop 10/14/17 at 22:08 [place] 1325 mg/ Sodium Chloride 113.25 ml @ 226.5 mls/hr Q24H IV Last administered on 10/13/17 20:57; Admin Dose 226.5 MLS/HR; Start 10/12/17 at 18 :45; Stop 10/14/17 at 19:14 [place] 1325 mg/ Sodium Chloride 63.25 ml @ 126.5 mls/ hr Q24H IV Last administered on 10/14/17 05:43; Admin Dose 126.5 MLS/HR; Start 10/13/17 at 02 :00; Stop 10/15/17 at 02:29 [place] 1325 mg/ Sodium Chloride 63.25 ml @ 126.5 mls/ hr Q24H IV Last administered on 10/13/17 09:49; Admin Dose 126.5 MLS/HR; Start 10/13/17 at 06 :00; Stop 10/15/17 at 06:29 Ondansetron HCl/ Dexamethasone/ Sodium Chloride (Zofran Inj/ Decadron/NS) 59 ml @ 118 mls/hr Q24H IVPB Last administered on 10/13/17 17:10; Admin Dose 118 MLS/HR; Start 10/12/17 at 17:15; Stop 10/14/17 at 17:44 Famotidine (Pepcid Iv) 20 mg Q12H IV Last administered on 10/14/17 05:43; Admin Dose 20 MG; Start 10/12/17 at 17:00 Miscellaneous Medication (Bax Susp) 10 ml QID PO Last administered on 14:15; Admin Dose 10 ML; Start 10/13/17 at 13:00 DOMINIQUE LAMBERT M.D. Oct 14, 2017 07:35
[2017-10-14] MEDS: ASPIRIN (EC) 81 MG TAB PO SCH (08:54)
[2017-10-14] MEDS: DIPHENHYD/MYLANTA/LIDO (PO SYG) PO SCH ×4 (08:54→21:45)
[2017-10-14] MEDS: LISINOPRIL 20 MG TAB PO SCH (08:54)
--- NOTE | 2017-10-14 10:29 | PN ---
Date/Time of Note Date/Time of Note DATE: 10/14/17 TIME: 10:26 Assessment/Plan VTE Prophylaxis VTE Prophylaxis Intervention: ambulation Lines/Catheters IV C[facility]ter Type (from [facility]): PICC Line Central line still needed: Yes Assessment/Plan Chief Complaint/Hosp Course 1.Undifferentiated sarcoma of right lower abdomen, admitted for cycle 3 chemotherapy with Adriamycin/ Ifosfamide/ Mesna. -Chemotherapy per patient's oncologist -Eventual tumor resection at tertiary center once sized is reducible with chemotherapy. 2. Essential hypertension. Stable. -Continue home medications 3. Hypernatremia, likely dehydration from chemo. -Given normal saline bolus. Continue half NS at 100 mL's per hour. -Monitor sodium level in morning. 4. Acute kidney injury, secondary to dynamics/chemotherapy. -We will treat with IV fluids. Will monitor renal function closely. 5. Anemia of chronic illness. H&H stable. Will monitor. -Really no need for transfusion. Prophylaxis ambulation/Pepcid Plan: Patient is scheduled for last dose of chemo tonight. Follow-up with oncology recommendations. Continue IV hydration. During his stay in the hospital, we will monitor patient for any signs of infections. CBC/BMP will be monitored daily. Patient is seen in collaboration with Dr. Zayas. Problems: Subjective 24 Hr Interval Summary Free Text/Dictation Doing well. Remains afebrile. Exam/Review of Systems Vital Signs Vitals Vital Signs Date Time Temp Pulse Resp B/P Pulse Ox O2 Delivery O2 Flow Rate FiO2 10/14/17 08:27 98.1 75 18 145/82 96 10/12/17 11:03 Room Air Intake and Output 10/13/17 10/13/17 10/14/17 15:00 23:00 07:00 Intake Total 63.25 ml 2389.0 ml 813.25 ml Output Total 1350 ml 900 ml Balance 63.25 ml 1039.0 ml -86.75 ml Exam General: Well developed,adequately built [place] male, not in any acute distress . HEENT: Normocephalic, Atraumatic, No laceration or hematoma; Eyes: PEERL, Conjunctiva clear, Anicteric sclera Neck: Supple without any lymphadenopathy, nontender, no JVD, no carotid bruits, trachea midline, no thyromegaly Cardiac: S1, S2 auscultated, regular rhythm and rate, no mumurs or gallop Pulmonary: Normal respiratory effort. Chest clear to auscultation bilaterally, no adventitious breath sounds GI: Abdomen normal to inspection. Soft, non tender, non- distended, no masses, no rebound tenderness or guarding. Bowel sounds active on all four quadrants Genitourinary: Deferred Extremities: No cyanosis, clubbing, or edema. Pulses [2+] bilaterally. Full ROM on all four extremities. No focal weakness appreciated. Neurologic: Alert to person, place, time, and situation. Affect appropriate, intact sensation. Skin: Clean,dry, and intact. No ecchymosis, no rashes, or lesions Results Result Diagram: 10/14/175 10/14/175 Results 24 hrs Laboratory Tests Test 10/13/17 12:31 10/13/17 17:19 10/14/17 04:30 10/14/17 04:45 Bedside Glucose 205 107 Urine Color YELLOW Urine Clarity CLEAR Urine pH 6.0 Urine Specific [place] 1.010 Urine Ketones TRACE A Urine Nitrite NEGATIVE Urine Bilirubin NEGATIVE Urine Urobilinogen NEGATIVE Urine Leukocyte Esterase NEGATIVE Urine Hemoglobin NEGATIVE Urine Glucose 3+ H Urine Total Protein NEGATIVE White Blood Count 8.2 Red Blood Count 3.05 L Hemoglobin 8.8 L Hematocrit 27.2 L Mean Corpuscular Volume 89.2 Mean Corpuscular Hemoglobin 28.9 L Mean Corpuscular Hemoglobin Concent 32.4 Red Cell Distribution Width 14.2 Platelet Count 275 Mean Platelet Volume 8.8 Neutrophils % 84.4 H Lymphocytes % 7.2 L Monocytes % 7.4 Eosinophils % 0.0 Basophils % 0.1 Nucleated Red Blood Cells % 0.0 Neutrophils # 6.9 Lymphocytes # 0.6 L Monocytes # 0.6 Eosinophils # 0.0 Basophils # 0.0 Nucleated Red Blood Cells # 0.0 Sodium Level 147 H Potassium Level 4.2 Chloride Level 110 Carbon Dioxide Level 26 Anion Gap 15 Blood Urea Nitrogen 11 Creatinine 0.85 Glucose Level 97 Calcium Level 9.2 Magnesium Level 2.2 Test 10/14/17 08:26 Bedside Glucose 91 Medications Medications Current Medications Aspirin (Halfprin) 81 mg DAILY PO Last administered on 10/14/17 08:54; Admin Dose 81 MG; Start 10/13/17 at 09:00 Lisinopril 20 mg 20 mg DAILY PO Last administered on 10/14/17 08:54; Admin Dose 20 MG; Start 10/13/17 at 09:00 Sodium Chloride (NS) 1,000 ml @ 75 mls/hr [id number] IV Last administered on 05:44; Admin Dose 75 MLS/HR; Start 10/12/17 at 11:57 Ondansetron HCl (Zofran Inj) 4 mg Q6H PRN IV NAUSEA AND/OR VOMITING; Start at 12:00 Acetaminophen (Tylenol Tab) 650 mg Q6H PRN PO PAIN LEVEL 1-3 OR FEVER; Start 10/12/17 at 12:00 Acetaminophen (Tylenol Supp) 650 mg Q6H PRN [place] PAIN LEVEL 1-3 OR FEVER; Start 10/12/17 at 12:00 Morphine Sulfate (morphine) 2 mg Q4H PRN IV SEVERE PAIN LEVEL 7-10; Start at 12:00 Docusate Sodium (Colace) 100 mg Q12H PRN PO CONSTIPATION Last administered on 10/14/17 08:57; Admin Dose 100 MG; Start 10/12/17 at 12:00 Diphenhydramine HCl (Benadryl) 25 mg Q4H PRN IV REACTION; Start 10/12/17 at 20 :00 Methylprednisolone Sodium Succinate (Solu-Medrol) 60 mg Q4H PRN IV REACTION; Start 10/12/17 at 20:00 Meperidine HCl 25 mg 25 mg Q12H PRN IV REACTION; Start 10/12/17 at 20:00 Doxorubicin HCl 45 mg/Sodium Chloride 122.5 ml @ 122.5 mls/ hr Q24H IV Last administered on 10/13/17 18:28; Admin Dose 122.5 MLS/HR; Start 10/12/17 at 17 :30; Stop 10/14/17 at 18:29 Ifosfamide 4.425 gm/Sodium Chloride 250 ml @ 80 mls/hr Q24H IV Last administered on 10/13/17 21:55; Admin Dose 80 MLS/HR; Start 10/12/17 at 19:00 ; Stop 10/14/17 at 22:08 [place] 1325 mg/ Sodium Chloride 113.25 ml @ 226.5 mls/hr Q24H IV Last administered on 10/13/17 20:57; Admin Dose 226.5 MLS/HR; Start 10/12/17 at 18 :45; Stop 10/14/17 at 19:14 [place] 1325 mg/ Sodium Chloride 63.25 ml @ 126.5 mls/ hr Q24H IV Last administered on 10/14/17 05:43; Admin Dose 126.5 MLS/HR; Start 10/13/17 at 02 :00; Stop 10/15/17 at 02:29 [place] 1325 mg/ Sodium Chloride 63.25 ml @ 126.5 mls/ hr Q24H IV Last administered on 10/14/17 09:38; Admin Dose 126.5 MLS/HR; Start 10/13/17 at 06 :00; Stop 10/15/17 at 06:29 Ondansetron HCl/ Dexamethasone/ Sodium Chloride (Zofran Inj/ Decadron/NS) 59 ml @ 118 mls/hr Q24H IVPB Last administered on 10/13/17 17:10; Admin Dose 118 MLS/HR; Start 10/12/17 at 17:15; Stop 10/14/17 at 17:44 Famotidine (Pepcid Iv) 20 mg Q12H IV Last administered on 10/14/17 05:43; Admin Dose 20 MG; Start 10/12/17 at 17:00 Miscellaneous Medication 10 ml 10 ml QID PO Last administered on 10/13/17 14: 15; Admin Dose 10 ML; Start 10/13/17 at 13:00 Sodium Chloride (NS) 500 ml @ 500 mls/hr Q1H ONCE IV ; Start 10/14/17 at 10:30 ; Stop 10/14/17 at 11:29; Status RODRIGO CRUZ NP Oct 14, 2017 10:28
[2017-10-14] MEDS ORDERED: SOD CHLORIDE 0.9% 500 ML IV ONE (10:30)
[2017-10-14] MEDS: SOD CHLORIDE 0.45% 1,000 ML IV SCH ×3 (10:38→22:50)
[2017-10-14] MEDS: ONDANSETRON INJ 16 MG, DEXAMETHASONE 10 MG/ML 10 MG in SOD CHLORIDE 0.9% 50 ML IVPB SCH (17:19)
[2017-10-14] MEDS: DOXORUBICIN IV SCH (18:13)
[2017-10-14] MEDS: IFOSFAMIDE IV SCH (21:30)
[2017-10-15] VITALS: BP 97/54; PULSE 73; RESP 18
[2017-10-15 03:17] VITALS: BP 135/84; RESP 20
[2017-10-15] MEDS: SOD CHLORIDE 0.9% IV SCH ×2 (05:10→09:09)
[2017-10-15] MEDS: FAMOTIDINE 20 MG INJ IV SCH (05:10)
[2017-10-15] MEDS: MESNA IV SCH ×2 (05:10→09:09)
[2017-10-15 05:18] LABS: ABNORMAL IP MESSAGE 1; BASOPHILS % 0.3 % (0.0-2.0); HEMATOCRIT 24.4 % (42.0-52.0); HEMOGLOBIN 7.8 g/dl (14.0-18.0); LYMPHOCYTES # 0.4 10^3/ul (0.8-2.9); LYMPHOCYTES % 6.5 % (15.0-51.0); MEAN CORPUSCULAR HEMOGLOBIN 28.4 pg (29.0-33.0); MEAN CORPUSCULAR VOLUME 88.7 fl (82.0-101.0); MEAN PLATELET VOLUME 8.6 fl (7.4-10.4); MONOCYTE # 0.5 10^3/ul (0.3-0.9); MONOCYTES % 8.2 % (0.0-11.0); NEUTROPHIL # 5.6 10^3/ul (1.6-7.5); NEUTROPHILS % 84.5 % (39.0-77.0); PLATELET COUNT 245 10^3/UL (140-415); POSITIVE DIFF @See below; RED BLOOD COUNT 2.75 10^6/ul (4.70-6.10); RED CELL DISTRIBUTION WIDTH 14.5 % (11.5-14.5); WHITE BLOOD COUNT 6.6 10^3/ul (4.8-10.8)
[2017-10-15 05:46] LABS: CALCIUM 8.7 mg/dl (8.4-10.2); CREATININE 0.8 mg/dl (0.61-1.24); MAGNESIUM 2.2 mg/dl (1.7-2.5); POTASSIUM 3.9 mmol/L (3.5-5.1)
[2017-10-15 08:06] VITALS: BP 145/79; RESP 17
[2017-10-15] MEDS: ASPIRIN (EC) 81 MG TAB PO SCH (09:08)
[2017-10-15] MEDS: LISINOPRIL 20 MG TAB PO SCH (09:08)
[2017-10-15] MEDS: DIPHENHYD/MYLANTA/LIDO (PO SYG) PO SCH ×2 (09:09→12:35)
[2017-10-15] MEDS: SOD CHLORIDE 0.45% 1,000 ML IV SCH (09:12)
[2017-10-15 10:50] LABS: ADD UMIC NO; UR ASCORBIC ACID NEGATIVE (NEGATIVE); UR BILIRUBIN (Dip) NEGATIVE (NEGATIVE); UR BLOOD (Dip) NEGATIVE (NEGATIVE); UR CLARITY CLEAR (CLEAR); UR COLOR YELLOW (YELLOW); UR GLUCOSE (Dip) 1+ mg/dL (NEGATIVE); UR KETONES (Dip) NEGATIVE (NEGATIVE); UR LEUKOCYTE ESTERASE (Dip) NEGATIVE Leu/ul (NEGATIVE); UR NITRITE (Dip) NEGATIVE (NEGATIVE); UR SPECIFIC GRAVITY (Dip) 1.011 (1.003-1.030); UR TOTAL PROTEIN (Dip) NEGATIVE (NEGATIVE); UR UROBILINOGEN (Dip) NEGATIVE (NEGATIVE)
--- NOTE | 2017-10-15 11:55 | DS ---
Date/Time of Note Date/Time of Note DATE: 10/15/17 TIME: 11:53 Discharge Summary Admission/Discharge Info Admit Date/Time Oct 12, 2017 at 10:18 Discharge Date/Time October 15, 2017 Discharge Diagnosis Pleomorphic cell sarcoma of the abdomen; hypertension; diabetes mellitus type 2 treated with diet Patient Condition: Fair Consults Oncology-Dr. 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 Patient is now being readmitted for cycle 3 chemotherapy. The eventual plan is to have patient evaluated by sarcoma surgeon at [facility] for possible resection of the tumor once the size is decreased with neoadjuvant chemotherapy with 3 cycles. At my encounter with the patient, he denied any chest pain, shortness of breath , palpitation, nausea, vomiting, abdominal pain, dizziness, or other constitutional symptoms. There is no current labs to review. Vital signs within acceptable range. Hospital Course 1.Undifferentiated sarcoma of right lower abdomen, admitted for cycle 3 chemotherapy with Adriamycin/ Ifosfamide/ [place]. -Chemotherapy per patient's oncologist -Eventual tumor resection at tertiary center once sized is reducible with chemotherapy. 2. Essential hypertension. Stable. -Continue home medications 3. Hypernatremia, likely dehydration from chemo. -Given normal saline bolus. Continue half NS at 100 mL's per hour. -Monitor sodium level in morning. 4. Acute kidney injury, secondary to dynamics/chemotherapy. -We will treat with IV fluids. Will monitor renal function closely. 5. Anemia of chronic illness. H&H stable. Will monitor. -Really no need for transfusion. Prophylaxis ambulation/Pepcid Plan: Patient is scheduled for last dose of chemo tonight. Follow-up with oncology recommendations. Continue IV hydration. During his stay in the hospital, we will monitor patient for any signs of infections. CBC/BMP will be monitored daily. Patient is seen in collaboration with Dr. Zayas. Nehemiah 8-year-old gentleman who is quite vibrant admitted and received his course of chemotherapy. He tolerated this well without evidence of infection complications or untoward reaction. He has now completed the chemotherapy and stable for discharge. He will be discharged with Neupogen as per the oncologist. He has good rehab potential he is not a hazard to himself or others he has no known communicable diseases. Home Meds Reported Medications Lisinopril* (Lisinopril*) 20 Mg Tablet, 20 MG PO DAILY, #30 TAB 08/04/17 Aspirin* (Aspirin* EC) 81 Mg Tablet.dr, 81 MG PO DAILY, TAB 08/04/17 Primary Care Provider [facility] Time spent on discharge: > 30 minutes Pending Labs Laboratory Tests Test 10/14/17 12:57 10/14/17 17:22 10/15/17 04:58 10/15/17 05:00 Bedside Glucose 131mg/dL (70-220) 101mg/dL (70-220) White Blood Count 6.610^3/ul (4.8-10.8) Red Blood Count 2.7510^6/ul (4.70-6.10) Hemoglobin 7.8g/dl (14.0-18.0) Hematocrit 24.4% (42.0-52.0) Mean Corpuscular Volume 88.7fl (82.0-101.0) Mean Corpuscular Hemoglobin 28.4pg (29.0-33.0) Mean Corpuscular Hemoglobin Concent 32.0g/dl (32.0-37.0) Red Cell Distribution Width 14.5% (11.5-14.5) Platelet Count 93049^3/UL (140-415) Mean Platelet Volume 8.6fl (7.4-10.4) Neutrophils % 84.5% (39.0-77.0) Lymphocytes % 6.5% (15.0-51.0) Monocytes % 8.2% (0.0-11.0) Eosinophils % 0.0% (0.0-7.0) Basophils % 0.3% (0.0-2.0) Nucleated Red Blood Cells % 0.0/100WBC (0.0-0.0) Neutrophils # 5.610^3/ul (1.6-7.5) Lymphocytes # 0.410^3/ul (0.8-2.9) Monocytes # 0.510^3/ul (0.3-0.9) Eosinophils # 0.010^3/ul (0.0-0.5) Basophils # 0.010^3/ul (0.0-0.1) Nucleated Red Blood Cells # 0.010^3/ul (0.0-0.0) Sodium Level 145mmol/L (135-144) Potassium Level 3.9mmol/L (3.5-5.1) Chloride Level 109mmol/L (97-110) Carbon Dioxide Level 25mmol/L (21-31) Anion Gap 15 (8-16) Blood Urea Nitrogen 13mg/dl (7-20) Creatinine 0.80mg/dl (0.61-1.24) Glucose Level 88mg/dl (70-220) Calcium Level 8.7mg/dl (8.4-10.2) Magnesium Level 2.2mg/dl (1.7-2.5) Urine Color YELLOW (YELLOW) Urine Clarity CLEAR (CLEAR) Urine pH 7.0 (5.0-9.0) Urine Specific [place] 1.011 (1.003-1.030) Urine Ketones NEGATIVEmg/dL (NEGATIVE) Urine Nitrite NEGATIVEmg/dL (NEGATIVE) Urine Bilirubin NEGATIVEmg/dL (NEGATIVE) Urine Urobilinogen NEGATIVEmg/dL (NEGATIVE) Urine Leukocyte Esterase NEGATIVELeu/ul (NEGATIVE) Urine Hemoglobin NEGATIVEmg/dL (NEGATIVE) Urine Glucose 1+mg/dL (NEGATIVE) Urine Total Protein NEGATIVEmg/dl (NEGATIVE) Test 10/15/17 09:07 Bedside Glucose 75mg/dL (70-220) BRIGETTE MENDOZA MD Oct 15, 2017 11:55
--- NOTE | 2017-10-15 11:57 | PDOCDIS ---
Discharge Instructions DIAGNOSIS Discharge Diagnosis Pleomorphic cell sarcoma of the abdomen; hypertension; diabetes mellitus type 2 treated with diet CONDITION Patient Condition: Fair HOME CARE INSTRUCTIONS: Diet Instructions: Regular ACTIVITY: Activity Restrictions: Slowly Increase Activity Do not operate Power Tool FOLLOW UP/APPOINTMENTS Follow-up Plan Dr. Mara Joe on in 2 weeks BRIGETTE MENDOZA MD Oct 15, 2017 11:57
[2017-10-15] MEDS ORDERED: HEPARIN (10 UNITS/ML) 5ML SYG CATHETER STA (12:07)
== END 2017-10-15 15:35 | disposition home health service (06) | DRG 847 ==
LOC: MS1 10:18
PROVIDERS: ADMIT Internal Medicine; ATTEND Internal Medicine
DX: Z51.11 Encounter for antineoplastic chemotherapy (principal); E87.0 Hyperosmolality and hypernatremia; N17.9 Acute kidney failure, unspecified; C76.2 Malignant neoplasm of abdomen; I10 Essential (primary) hypertension; E86.0 Dehydration; D63.8 Anemia in other chronic diseases classified elsewhere; K12.30 Oral mucositis (ulcerative), unspecified; E11.9 Type 2 diabetes mellitus without complications; E78.5 Hyperlipidemia, unspecified; T45.1X5A Adverse effect of antineoplastic and immunosuppressive drugs, initial encounter; Y92.230 Patient room in hospital as the place of occurrence of the external cause; Z87.891 Personal history of nicotine dependence
CPT/HCPCS: 80048; 80053; 81003; 82962; 83036; 83735; 84100; 85025; 87081; 87086; 90686; J9209; J1100; J1642; J2405; J7030; J7040; J7050; J9000